=== PATIENT | female | born 1930 | race Caucasian/White ===

== ENCOUNTER 2016-11-29 00:21 | Inpatient (IN) | payer MEDICARE, BC ==
[2016-11-29] MEDS ORDERED: Ondansetron INJ* 2 MG/ML VIAL IV ONE (00:36)
[2016-11-29] MEDS ORDERED: Morphine INJ* 4 MG/ML 1 ML CARPUJECT IV ONE (00:36)
[2016-11-29 01:11] LABS: Hematocrit 36 % (35-47); Hemoglobin 11.6 g/dl (12.0-16.0); Mean Corpuscular HGB Conc 32 g/dl (31-36); Mean Corpuscular Hemoglobin 29 pg (27-31); Mean Corpuscular Volume 89 fL (80-97); Mean Platelet Volume 9 um3 (7.4-10.4); Red Blood Count 4.06 10^6/ul (4.0-5.4); Red Cell Distribution Width 16 % (10.5-15); White Blood Count 17.8 10^3/ul (3.5-10.8)
[2016-11-29 01:24] LABS: ALT 16 U/L (7-52); Albumin 3.8 g/dL (3.2-5.2); Alkaline Phosphatase 48 U/L (34-104); BUN/Creatinine Ratio 24.1 (8-20); Blood Urea Nitrogen 32 mg/dL (6-24); C Reactive Protein < 1.00 mg/L (< 5.00); CO2 Carbon Dioxide 25 mmol/L (22-32); Calcium 9.1 mg/dL (8.6-10.3); Chloride 99 mmol/L (101-111); Creatine Kinase 354 U/L (10-223); EGFR African American 48.6 (>60); EGFR Non-African American 37.8 (>60); Globulin 3.1 g/dL (2-4); Glucose 138 mg/dL (70-100); Lipase 28 U/L (11.0-82.0); Magnesium 1.9 mg/dL (1.9-2.7); Sodium 133 mmol/L (133-145); Total Protein 6.9 g/dL (6.4-8.9)
[2016-11-29 01:26] LABS: AST 24 U/L (13-39); Anion Gap 9 mmol/L (2-11); Potassium 4.8 mmol/L (3.5-5.0)
[2016-11-29 01:27] LABS: Troponin I 0.04 ng/mL (<0.04)
[2016-11-29 01:45] LABS: TSH (Thyroid Stimulating Horm) 0.22 mcIU/mL (0.34-5.60)
[2016-11-29] MEDS: NS 0.9% 1000 ML* 1,000 ML IV SCH ×3 (02:15→17:22)
--- NOTE | 2016-11-29 03:17 | ED ---
Dmitriy Hernandez Rebecca, scribed for Archie Bill MD on 11/29/16 at 0036 . Lower Extremity - HPI Summary HPI Summary: Pt is an 86 y/o F BIBA who presents to ED c/o R hip pain s/p fall. Pt was outside and slipped on ice, causing a mechanical fall at 1900, causing her to be outside from 1900 to 2300, until EMS arrived. Pt c/o R hip pain that began immediately after the fall and has been constant since onset. Pain is currently moderate and is discrete to the R hip. Sx aggravated and alleviated by nothing. Denies any other pain, including abd pain. Unsure of her reaction to codeine due to how long ago the reaction was. Is on Coumadin. - History of Current Complaint Stated Complaint: FALL, OUTSIDE 5 HOURS LEG PAIN Time Seen by Provider: 11/29/16 00:27 Hx Obtained From: Patient Mechanism Of Injury: Fall From A Standing Position Onset of Pain: Immediate Onset/Duration: Hours Severity Initially: Moderate Severity Currently: Moderate Timing: Constant Location: Is Discrete @ - R hip Character Of Pain: Sharp Associated Signs And Symptoms: Positive: Negative Aggravating Factor(s): Nothing Alleviating Factor(s): Nothing - Allergies/Home Medications Allergies/Adverse Reactions: Allergies Allergy/AdvReac Type Severity Reaction Status Date / Time Adhesive Tape [Paper Tape] Allergy Blisters Verified 11/29/16 02:37 Amiodarone Allergy Unknown Verified 11/29/16 02:37 Reaction Details Codeine Allergy Unknown Verified 11/29/16 02:37 Reaction Details PMH/Surg Hx/FS Hx/Imm Hx Endocrine/Hematology History: Reports: Hx Thyroid Disease Denies: Hx Diabetes Cardiovascular History: Reports: Hx Congestive Heart Failure, Hx Hypercholesterolemia, Hx Hypertension - TREATED, Hx Pacemaker/ICD - 2004, Other Cardiovascular Problems/Disorders - Bradycardia Respiratory History: Reports: Hx Asthma - NEW ONSET VERY SOB WORSENING 12/2014 Denies: Hx Chronic Obstructive Pulmonary Disease (COPD) GI History: Denies: Hx Gastroesophageal Reflux Disease, Hx Ulcer Musculoskeletal History: Reports: Hx Arthritis Sensory History: Reports: Hx Cataracts, Hx Contacts or Glasses, Hx Hearing Problem Opthamlomology History: Reports: Hx Cataracts, Hx Contacts or Glasses - Cancer History Cancer Type, Location and Year: colon ca 2010 - Surgical History Surgery Procedure, Year, and Place: Bilateral total shoulder replacements, Colon Resection 2009, pacer/ICD - Immunization History Date of Tetanus Vaccine: pt states she doesnt know Date of Influenza Vaccine: jul 2012 Infectious Disease History: Denies: Hx Clostridium Difficile, Hx Hepatitis, Hx Human Immunodeficiency Virus (HIV), Hx of Known/Suspected MRSA, Hx Shingles, Hx Tuberculosis, Traveled Outside the [place] in Last 30 Days - Family History Known Family History: Positive: Other - Stomach CA - Social History Alcohol Use: Rare Substance Use Type: Reports: None Smoking Status (MU): Never Smoked Tobacco Review of Systems Negative: Abdominal Pain Positive: Arthralgia - R hip pain All Other Systems Reviewed And Are Negative: Yes Physical Exam Triage Information Reviewed: Yes Vital Signs On Initial Exam: Initial Vitals Temp Pulse Resp BP Pulse Ox 97.7 F 70 20 134/64 100 11/29/16 00:25 11/29/16 00:25 11/29/16 00:25 11/29/16 00:25 11/29/16 00:25 Vital Signs Reviewed: Yes Appearance: Positive: Well-Appearing, No Pain Distress Skin: Positive: Skin Color Reflects Adequate Perfusion, Dry, Cold - Both feet are cool to the touch, Other - Shivering; normal capillary refill Eyes: Positive: EOMI, ANTONINO Neck: Positive: Supple, Nontender Respiratory/Lung Sounds: Positive: Clear to Auscultation, Breath Sounds Present Cardiovascular: Positive: RRR Abdomen Description: Positive: Nontender, Soft Bowel Sounds: Positive: Present Musculoskeletal: Positive: Pain @ - Tenderness to the R hip; RLE is shortened and externally rotated, Other - Good pedal pulses Neurological: Positive: Normal, Sensory/Motor Intact, Alert, Oriented to Person Place, Time Psychiatric: Positive: Affect/Mood Appropriate Diagnostics - Vital Signs Vital Signs Temp Pulse Resp BP Pulse Ox 11/29/16 03:00 80 24 141/56 97 11/29/16 02:30 80 19 155/81 96 11/29/16 02:16 80 20 140/63 98 11/29/16 02:10 80 18 98 11/29/16 01:13 16 11/29/16 01:00 80 26 98 11/29/16 00:53 83 24 97 11/29/16 00:25 97.7 F 70 20 134/64 100 - Laboratory Lab Results: Lab Results 01/01/1411/29/16 11/29/16 Range/Units 00:50 00:50 00:50 WBC 17.8 H (3.5-10.8) 10^3/ul RBC 4.06 (4.0-5.4) 10^6/ul Hgb 11.6 L (12.0-16.0) g/dl Hct 36 (35-47) % MCV 89 (80-97) fL MCH 29 (27-31) pg MCHC 32 (31-36) g/dl RDW 16 H (10.5-15) % Plt Count 218 (150-450) 10^3/ul MPV 9 (7.4-10.4) um3 Neut % (Auto) 80.0 (38-83) % Lymph % (Auto) 12.1 L (25-47) % Sterling % (Auto) 7.4 (1-9) % Eos % (Auto) 0.1 (0-6) % Baso % (Auto) 0.4 (0-2) % Absolute Neuts (auto) 14.2 H (1.5-7.7) 10^3/ul Absolute Lymphs (auto) 2.2 (1.0-4.8) 10^3/ul Absolute Monos (auto) 1.3 H (0-0.8) 10^3/ul Absolute Eos (auto) 0 (0-0.6) 10^3/ul Absolute Basos (auto) 0.1 (0-0.2) 10^3/ul Absolute Nucleated RBC 0 10^3/ul Nucleated RBC % 0 INR (Anticoag Therapy) 2.65 H (0.89-1.11) APTT 30.3 (26.0-36.3) seconds Sodium 133 (133-145) mmol/L Potassium 4.8 (3.5-5.0) mmol/L Chloride 99 L (101-111) mmol/L Carbon Dioxide 25 (22-32) mmol/L Anion Gap 9 (2-11) mmol/L BUN 32 H (6-24) mg/dL Creatinine 1.33 H (0.51-0.95) mg/dL Est GFR ( Amer) 48.6 (>60) Est GFR (Non-Af Amer) 37.8 (>60) BUN/Creatinine Ratio 24.1 H (8-20) Glucose 138 H (70-100) mg/dL Lactic Acid (0.5-2.0) mmol/L Calcium 9.1 (8.6-10.3) mg/dL Magnesium 1.9 (1.9-2.7) mg/dL Total Bilirubin 0.60 (0.2-1.0) mg/dL AST 24 (13-39) U/L ALT 16 (7-52) U/L Alkaline Phosphatase 48 (34-104) U/L Total Creatine Kinase 354 H (10-223) U/L CK-MB (CK-2) 13.5 H (0.6-6.3) ng/mL Troponin I 0.04 H* (<0.04) ng/mL C-Reactive Protein < 1.00 (< 5.00) mg/L Total Protein 6.9 (6.4-8.9) g/dL Albumin 3.8 (3.2-5.2) g/dL Globulin 3.1 (2-4) g/dL Albumin/Globulin Ratio 1.2 (1-3) Lipase 28 (11.0-82.0) U/L TSH 0.22 L (0.34-5.60) mcIU/mL 11/29/16 Range/Units 00:50 WBC (3.5-10.8) 10^3/ul RBC (4.0-5.4) 10^6/ul Hgb (12.0-16.0) g/dl Hct (35-47) % MCV (80-97) fL MCH (27-31) pg MCHC (31-36) g/dl RDW (10.5-15) % Plt Count (150-450) 10^3/ul MPV (7.4-10.4) um3 Neut % (Auto) (38-83) % Lymph % (Auto) (25-47) % Sterling % (Auto) (1-9) % Eos % (Auto) (0-6) % Baso % (Auto) (0-2) % Absolute Neuts (auto) (1.5-7.7) 10^3/ul Absolute Lymphs (auto) (1.0-4.8) 10^3/ul Absolute Monos (auto) (0-0.8) 10^3/ul Absolute Eos (auto) (0-0.6) 10^3/ul Absolute Basos (auto) (0-0.2) 10^3/ul Absolute Nucleated RBC 10^3/ul Nucleated RBC % INR (Anticoag Therapy) (0.89-1.11) APTT (26.0-36.3) seconds Sodium (133-145) mmol/L Potassium (3.5-5.0) mmol/L Chloride (101-111) mmol/L Carbon Dioxide (22-32) mmol/L Anion Gap (2-11) mmol/L BUN (6-24) mg/dL Creatinine (0.51-0.95) mg/dL Est GFR ( Amer) (>60) Est GFR (Non-Af Amer) (>60) BUN/Creatinine Ratio (8-20) Glucose (70-100) mg/dL Lactic Acid 2.7 H* (0.5-2.0) mmol/L Calcium (8.6-10.3) mg/dL Magnesium (1.9-2.7) mg/dL Total Bilirubin (0.2-1.0) mg/dL AST (13-39) U/L ALT (7-52) U/L Alkaline Phosphatase (34-104) U/L Total Creatine Kinase (10-223) U/L CK-MB (CK-2) (0.6-6.3) ng/mL Troponin I (<0.04) ng/mL C-Reactive Protein (< 5.00) mg/L Total Protein (6.4-8.9) g/dL Albumin (3.2-5.2) g/dL Globulin (2-4) g/dL Albumin/Globulin Ratio (1-3) Lipase (11.0-82.0) U/L TSH (0.34-5.60) mcIU/mL Result Diagrams: 11/29/16 00:50 11/29/16 00:50 Lab Statement: Any lab studies that have been ordered have been reviewed, and results considered in the medical decision making process. - Radiology Hip/Pelvis XR Xray Interpretation: Positive (See Comments) - R hip fx Radiology Interpretation Completed By: ED Physician - EKG 0043 Cardiac Rate: NL - 80 bpm EKG Rhythm: Sinus Rhythm - Normal sinus rhythm with intermittently atrial paced rhythm of [address] Segment: Normal - No ST changes Re-Evaluation - Re-Evaluation First Eval Re-Evaluation Time: 02:42 Change: Unchanged Comment: Discussed XR results and admission plan. Pt and family understand and agree. Lower Extremity Course/Dx - Course Assessment/Plan: WELL IN ED. DISCUSSED REULTS WITH PATIENT, ORTHOPEDIST AND HOSPITALIST. ADMIT HOSPITALIST STABLE. - Diagnoses Provider Diagnoses: Hip fracture - Physician Notifications Discussed Care of Patient With: Dr. Mcneal, hospitalist, who agrees to admit pt if orthopedics declares that she needs admission. Dr. Patton, orthopedist, at 0222, to notify her of the hip fx who advises that pt be admitted. Dr. Mcneal, hospitalist, Time Discussed With Above Provider: 01:34 Discharge - Discharge Plan Condition: Stable Disposition: ADMITTED TO [facility] Referrals: Mariano Guy MD [Primary Care Provider] - The documentation as recorded by the Dmitriy villagran Rebecca accurately reflects the service I personally performed and the decisions made by me, Archie Bill MD.
[2016-11-29 04:40] LABS: Urine Bacteria Absent (Absent); Urine Bilirubin Negative (Negative); Urine Glucose Negative (Negative); Urine Nitrite Negative (Negative)
[2016-11-29] MEDS ORDERED: Morphine INJ* 2 MG/ML 1 ML CARPUJECT ONE (04:40)
[2016-11-29] MEDS: Morphine INJ* 2 MG/ML 1 ML CARPUJECT IV PRN ×4 (04:42→19:25)
[2016-11-29] MEDS ORDERED: NS 0.9% 1000 ML* 1,000 ML IV SCH (05:15)
[2016-11-29] MEDS: Dofetilide CAP* 250 MCG PO SCH ×3 (06:17→19:27)
[2016-11-29] MEDS: Levothyroxine TAB* 125 MCG TAB PO SCH (07:07)
--- NOTE | 2016-11-29 07:51 | RAD ---
HISTORY: Fall, right hip pain COMPARISONS: 02/10/2006 VIEWS: 4, Frontal view of the pelvis with frontal and crosstable lateral views of the right hip FINDINGS: BONE DENSITY: There is diffuse osteopenia. BONES: There is angulated fracture of the intertrochanteric and subtrochanteric proximal right femur. 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 ALIGNMENT: As noted above, there is varus angulation of the proximal femoral fracture. There is no dislocation. SOFT TISSUES: Unremarkable. OTHER FINDINGS: None. IMPRESSION: ANGULATED FRACTURE OF THE PROXIMAL RIGHT FEMUR
--- NOTE | 2016-11-29 07:55 | RAD ---
INDICATION: Shortness of breath COMPARISON: Chest x-ray dated September 23, 2016 TECHNIQUE: Single AP view of the chest was obtained. FINDINGS: Postoperative findings include bilateral shoulder prostheses and a left upper chest cardiac pacemaker with 4 leads overlying the heart. The heart and mediastinum exhibit normal size and contour. There is patchy density overlying the right hilum at the medial aspect of the right lung base is not densely seen in the previous chest x-ray. Elsewhere the lungs are clear. There is no evidence of a large pleural effusion. Visualized bones are normal for the patient's age. IMPRESSION: POSSIBLE INFILTRATE AT THE MEDIAL ASPECT OF THE RIGHT LOWER LUNG. THIS COULD REPRESENT PNEUMONIA IN THE CORRECT CLINICAL SETTING.
[2016-11-29] MEDS: Atorvastatin* 20 MG TAB PO SCH (08:35)
[2016-11-29] MEDS: Spironolactone TAB* 25 MG PO SCH (08:35)
[2016-11-29] MEDS ORDERED: COMBIGAN LEFT EYE SCH (09:00)
[2016-11-29] MEDS ORDERED: Dorzolamide 2% OPTH (NF) 10 ML BTL LEFT EYE SCH (09:00)
[2016-11-29] MEDS: Torsemide TAB* 20 MG PO SCH (09:31)
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
--- NOTE | 2016-11-29 15:19 | PN ---
Subjective Date of Service: 11/29/16 Interval History: Patient seen and examined at bedside. She states that she lives at home with her in [place] in a farmhouse. They live solely on the bottom floor of their home and do not have to climb stairs. There are 4 rooms on the bottom floor. She sustained a mechanical fall on ice last evening as she was attempting to go out to the garage. She denies CP, SOB, abd pain, n/v, dysuria. She reports adequate pain control with morphine. Family History: Unchanged from Admission Social History: Unchanged from Admission Past Medical History: Unchanged from Admission Objective Active Medications: Atorvastatin Calcium (Lipitor*) 20 mg PO DAILY CARLOS PRN Reason: Protocol Last Admin: 11/29/16 08:35 Dose: 20 mg Bimatoprost (Lumigan 0.01% Ophth (Nf)) 1 drop LEFT EYE BEDTIME [facility] Dofetilide (Tikosyn Cap*) 250 mcg PO BID [facility] Last Admin: 11/29/16 06:19 Dose: 250 mcg Dorzolamide HCl (Trusopt 2% Opth (Nf)) 1 drop LEFT EYE BID [facility] PRN Reason: Protocol Sodium Chloride (Ns 0.9% 1000 Ml*) 1,000 mls @ 150 mls/hr IV PER RATE [facility] Last Admin: 11/29/16 06:19 Dose: 150 mls/hr Sodium Chloride (Ns 0.9% 1000 Ml*) 1,000 mls @ 100 mls/hr IV PER RATE [facility] Last Admin: 11/29/16 07:15 Dose: 100 mls/hr Levothyroxine Sodium (Synthroid Tab*) 125 mcg PO 0600 CARLOS Last Admin: 11/29/16 07:07 Dose: 125 mcg Morphine Sulfate (Morphine Inj (Syringe)*) 2 mg IV Q2H PRN PRN Reason: PAIN Last Admin: 11/29/16 12:52 Dose: 2 mg Pt Own Nf Med* ( Combigan 0.2/0.5% ( Nf) 1 Drop) 1 drop LEFT EYE BID [facility] Ondansetron HCl (Zofran Inj*) 4 mg IV Q4H PRN PRN Reason: NAUSEA Spironolactone (Aldactone Tab*) 25 mg PO DAILY [facility] Last Admin: 11/29/16 08:35 Dose: 25 mg Torsemide (Demadex*) 20 mg PO MoWeFr@0900 [facility] Last Admin: 11/29/16 09:31 Dose: 20 mg Vital Signs 11/29/16 11/29/16 11/29/16 04:42 05:00 05:30 Temperature 97.3 F Pulse Rate 80 80 Respiratory 16 20 18 Rate Blood Pressure 135/61 145/77 (mmHg) O2 Sat by Pulse 95 98 Oximetry 11/29/16 11/29/16 11/29/16 05:49 06:33 07:09 Temperature 97.3 F Pulse Rate 80 Respiratory 18 18 18 Rate Blood Pressure 145/77 (mmHg) O2 Sat by Pulse 98 Oximetry 11/29/16 11/29/16 11/29/16 07:40 10:16 11:16 Temperature 97.9 F Pulse Rate 80 Respiratory 14 16 16 Rate Blood Pressure 128/65 (mmHg) O2 Sat by Pulse 97 Oximetry 11/29/16 11/29/16 11/29/16 12:08 12:52 13:52 Temperature 97.9 F Pulse Rate 80 Respiratory 16 16 16 Rate Blood Pressure 122/58 (mmHg) O2 Sat by Pulse 96 Oximetry Oxygen Devices in Use Now: None Appearance: Older female, lying in bed, in NAD Eyes: PERRLA Ears/Nose/Mouth/Throat: Mucous Membranes Moist Neck: NL Appearance and Movements; NL JVP Respiratory: Symmetrical Chest Expansion and Respiratory Effort, Clear to Auscultation Cardiovascular: NL Sounds; No Murmurs; No JVD, RRR Abdominal: NL Sounds; No Tenderness; No Distention Extremities: No Edema Skin: No Rash or Ulcers Neurological: Alert and Oriented x 3 Lines/Tubes/Other Access: Clean, Dry and Intact Lara, Clean, Dry and Intact Peripheral IV Nutrition: Taking PO's Result Diagrams: 11/29/16 00:50 11/29/16 00:50 Additional Lab and Data: Lab Results 11/29/16 11/29/16 11/29/16 Range/Units 00:50 00:50 00:50 WBC 17.8 H (3.5-10.8) 10^3/ul RBC 4.06 (4.0-5.4) 10^6/ul Hgb 11.6 L (12.0-16.0) g/dl Hct 36 (35-47) % MCV 89 (80-97) fL MCH 29 (27-31) pg MCHC 32 (31-36) g/dl RDW 16 H (10.5-15) % Plt Count 218 (150-450) 10^3/ul MPV 9 (7.4-10.4) um3 Neut % (Auto) 80.0 (38-83) % Lymph % (Auto) 12.1 L (25-47) % Clinton % (Auto) 7.4 (1-9) % Eos % (Auto) 0.1 (0-6) % Baso % (Auto) 0.4 (0-2) % Absolute Neuts (auto) 14.2 H (1.5-7.7) 10^3/ul Absolute Lymphs (auto) 2.2 (1.0-4.8) 10^3/ul Absolute Monos (auto) 1.3 H (0-0.8) 10^3/ul Absolute Eos (auto) 0 (0-0.6) 10^3/ul Absolute Basos (auto) 0.1 (0-0.2) 10^3/ul Absolute Nucleated RBC 0 10^3/ul Nucleated RBC % 0 INR (Anticoag Therapy) 2.65 H (0.89-1.11) APTT 30.3 (26.0-36.3) seconds Sodium 133 (133-145) mmol/L Potassium 4.8 (3.5-5.0) mmol/L Chloride 99 L (101-111) mmol/L Carbon Dioxide 25 (22-32) mmol/L Anion Gap 9 (2-11) mmol/L BUN 32 H (6-24) mg/dL Creatinine 1.33 H (0.51-0.95) mg/dL Est GFR ( Amer) 48.6 (>60) Est GFR (Non-Af Amer) 37.8 (>60) BUN/Creatinine Ratio 24.1 H (8-20) Glucose 138 H (70-100) mg/dL Lactic Acid (0.5-2.0) mmol/L Calcium 9.1 (8.6-10.3) mg/dL Magnesium 1.9 (1.9-2.7) mg/dL Total Bilirubin 0.60 (0.2-1.0) mg/dL AST 24 (13-39) U/L ALT 16 (7-52) U/L Alkaline Phosphatase 48 (34-104) U/L Total Creatine Kinase 354 H (10-223) U/L CK-MB (CK-2) 13.5 H (0.6-6.3) ng/mL Troponin I 0.04 H* (<0.04) ng/mL C-Reactive Protein < 1.00 (< 5.00) mg/L Total Protein 6.9 (6.4-8.9) g/dL Albumin 3.8 (3.2-5.2) g/dL Globulin 3.1 (2-4) g/dL Albumin/Globulin Ratio 1.2 (1-3) Lipase 28 (11.0-82.0) U/L TSH 0.22 L (0.34-5.60) mcIU/mL 11/29/16 Range/Units 00:50 WBC (3.5-10.8) 10^3/ul RBC (4.0-5.4) 10^6/ul Hgb (12.0-16.0) g/dl Hct (35-47) % MCV (80-97) fL MCH (27-31) pg MCHC (31-36) g/dl RDW (10.5-15) % Plt Count (150-450) 10^3/ul MPV (7.4-10.4) um3 Neut % (Auto) (38-83) % Lymph % (Auto) (25-47) % Clinton % (Auto) (1-9) % Eos % (Auto) (0-6) % Baso % (Auto) (0-2) % Absolute Neuts (auto) (1.5-7.7) 10^3/ul Absolute Lymphs (auto) (1.0-4.8) 10^3/ul Absolute Monos (auto) (0-0.8) 10^3/ul Absolute Eos (auto) (0-0.6) 10^3/ul Absolute Basos (auto) (0-0.2) 10^3/ul Absolute Nucleated RBC 10^3/ul Nucleated RBC % INR (Anticoag Therapy) (0.89-1.11) APTT (26.0-36.3) seconds Sodium (133-145) mmol/L Potassium (3.5-5.0) mmol/L Chloride (101-111) mmol/L Carbon Dioxide (22-32) mmol/L Anion Gap (2-11) mmol/L BUN (6-24) mg/dL Creatinine (0.51-0.95) mg/dL Est GFR ( Amer) (>60) Est GFR (Non-Af Amer) (>60) BUN/Creatinine Ratio (8-20) Glucose (70-100) mg/dL Lactic Acid 2.7 H* (0.5-2.0) mmol/L Calcium (8.6-10.3) mg/dL Magnesium (1.9-2.7) mg/dL Total Bilirubin (0.2-1.0) mg/dL AST (13-39) U/L ALT (7-52) U/L Alkaline Phosphatase (34-104) U/L Total Creatine Kinase (10-223) U/L CK-MB (CK-2) (0.6-6.3) ng/mL Troponin I (<0.04) ng/mL C-Reactive Protein (< 5.00) mg/L Total Protein (6.4-8.9) g/dL Albumin (3.2-5.2) g/dL Globulin (2-4) g/dL Albumin/Globulin Ratio (1-3) Lipase (11.0-82.0) U/L TSH (0.34-5.60) mcIU/mL Assess/Plan/Problems-Billing Assessment: Ms. Pompa is an 86 yo female with a PMH of paroxysmal afib, dual chamber pacemaker placement, cardiomyopathy EF 45%, systolic and diastolic heart failure , BALJIT, hypothyroidism, HTN, HLD, bullous pemphigoid, and colon cancer who was admitted 11/29/16 for right hip fracture sustained during mechanical fall. - Patient Problems (1) Closed right hip fracture Code(s): S72.001A - FRACTURE OF UNSP PART OF NECK OF RIGHT FEMUR, INIT Comment : Management per ortho, plan for surgery Tuesday, once INR decreases Lara catheter for comfort and hemodynamic monitoring Pain management Cardiology consult desired due to multiple cardiovascular risk factors. The patient has an RCRI score of 1, which places the patient at a 0.9% risk of a major cardiac event. Her functional capacity is approximately 3-4 mets at best ; the patient does ambulate in her home and is able to drive. She does do some grocery shopping. She does not cook her own food and has someone clean her house. She and her eat out for breakfast and dinner. (2) Paroxysmal atrial fibrillation Code(s): I48.0 - PAROXYSMAL ATRIAL FIBRILLATION Comment: Stable, not currently in a fib. Continue Tikosyn Hold warfarin in the preoperative period; may resume per ortho (3) Cardiomyopathy Code(s): I42.9 - CARDIOMYOPATHY, UNSPECIFIED Comment: Most recently documented EF is 45% (4) Systolic and diastolic CHF, chronic Code(s): I50.42 - CHRONIC COMBINED SYSTOLIC AND DIASTOLIC HRT FAIL Comment: Chronic intermittent, does not appear to be in acute exacerbation Continue torsemide, spironolactone (5) BALJIT (obstructive sleep apnea) Code(s): G47.33 - OBSTRUCTIVE SLEEP APNEA (ADULT) (PEDIATRIC) Comment: Does not tolerate CPAP (6) Hypothyroidism Code(s): E03.9 - HYPOTHYROIDISM, UNSPECIFIED Comment: Continue levothyroxine (7) HTN (hypertension) Code(s): I10 - ESSENTIAL (PRIMARY) HYPERTENSION Comment: Controlled. Continue home medications. (8) Dyslipidemia Code(s): E78.5 - HYPERLIPIDEMIA, UNSPECIFIED Comment: Continue statin. (9) DVT prophylaxis Comment: INR is supratherapeutic. Hold warfarin. Status and Disposition: Inpatient admission. Anticipate LOS >2 days.
--- NOTE | 2016-11-29 16:13 | PN ---
Progress Note - Progress Note Note: Pt seen and examined at 9 this AM. Note dictated but has not been transcribed. Plan for TFN on Tuesday.
--- NOTE | 2016-11-29 18:29 | CONS ---
CONSULTATION REPORT: DATE OF CONSULTATION: 11/29/16 ATTENDING PHYSICIAN: Stephanie Patton MD CONSULTING TEAM: Hospitalist. CHIEF COMPLAINT: Right hip pain. HISTORY OF PRESENT ILLNESS: Briefly, Ms. Martha Pompa is an 86-year-old independent female who was walking briskly back to her car as she had forgotten something in the car and then slipped and landed hard on her right side. She was unable weight bear and was transferred to the ED late yesterday evening. She is in her usual state of health. She has a complicated past medical history with pacemaker status post AV ligia ablation, paroxysmal atrial fibrillation. She is on Coumadin. She was diagnosed with subtrochanteric right hip fracture and admitted for medical optimization. Her INR was 2.5. She denies any numbness or tingling. She denies any loss of consciousness. Otherwise, she is alert and oriented. PAST MEDICAL HISTORY: Significant for paroxysmal atrial fibrillation, symptomatic bradycardia, tachybrady syndrome, cardiomyopathy with ejection fraction of 45%, chronic intermittent congestive heart failure, BALJIT, morbid obesity, hypothyroid disease, hypertension, dyslipidemia, past history of bullous pemphigoid that is resolved, history of colon cancer that is in remission. PAST SURGICAL HISTORY: Significant for pacemaker in 2000, colon cancer status post colectomy on 05/25/11, AV node ablation in 2009. MEDICATIONS: Include: 1. Coumadin. 2. Torsemide. 3. Spironolactone. 4. Synthroid. 5. Combigan ophthalmic drops. 6. Bimatoprost ophthalmic drops. 7. Lipitor. ALLERGIES: Include CODEINE, TAPE, AMIODARONE, and IODINATED CONTRAST AGENTS. FAMILY HISTORY: Her father at 73 with stomach cancer. Her mother at 90 with congenital heart disease. SOCIAL HISTORY: She lives with her . 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 She never smoked. She drinks alcohol rarely. She is independent ambulator. Does not use any assistive devices. REVIEW OF SYSTEMS: A 14-point review of systems is significant for the above complaint as well as extensive cardiac history. PHYSICAL EXAM: Vital Signs: Temp is 97.9, heart rate of 80, respiratory rate of 14, O2 rate of 97% on room air, blood pressure is 128/65. She is alert and oriented x3. She is no acute distress. EOMI. Chest is clear to auscultation. CV regular rate. Abdomen soft, nontender. Examination of the left leg demonstrates the skin is intact. She has bruising over the right lateral knee. She is nontender about the knee. She is able to dorsiflex, plantar flex her ankle. She is sensate to light touch about the first dorsal webspace, medial, lateral, dorsal and plantar foot. She has 2+ dorsalis pedis pulse. She is able to flex and extend her toes. Her calf is soft and nontender. DIAGNOSTIC STUDIES/LAB DATA: Labs include white count of 17.8, hematocrit of 36 , platelet count of 218. INR is 2.65. Sodium is 133, potassium 4.8, chloride 99, carbon dioxide 25, BUN is 32, creatinine is 1.33. Lactic acid was 2.7 and then rechecked several hours later and it is 1.4. Calcium is 9.1. Total creatine kinase is 354, CK-MB is 13.5. Troponin x2 is 0.04 and 0.07. TSH is 0.22. Lipase 28. X-rays reviewed that are AP, pelvis, and views of the right hip demonstrated a subtrochanteric femur fracture. Does have a significant amount of displacement ; however, it shortened. ASSESSMENT AND PLAN: She has subtrochanteric right hip fracture. This needs surgical treatment. Treatment would be right hip intramedullary nail. We discussed the risks and benefits of surgery. We discussed that this is difficult fracture due to its location and that we can often require an open reduction. We did discuss the risks including but not limited to bleeding, infection, damage to nerve vessel, surrounding structures, wound nonhealing, persistent pain, scarring, need for further surgery, mobility issues, mortality , risks of DVT, and risks of anesthesia. She will undergo medical optimization and we will lower her INR to the normal range. This may take a day or 2. She will require cardiac risk assessment as well and we will plan for surgery likely on Tuesday if she is stable on Tuesday. I will ask one of my partners can take care of her on Tuesday. Otherwise, we will plan for Tuesday afternoon. CC: PCP, Mariano Guy MD* [id number]/[facility] #: [id number] DAYA
[2016-11-29] MEDS: DORZOLAMIDE 2% LEFT EYE SCH (19:28)
[2016-11-29] MEDS: OPTH LEFT EYE SCH (19:28)
[2016-11-29] MEDS: COMBIGAN LEFT EYE SCH (19:29)
[2016-11-29] MEDS: BIMATOPROST 0.01% LEFT EYE SCH (19:30)
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
[2016-11-30] MEDS: Levothyroxine TAB* 125 MCG TAB PO SCH (05:38)
[2016-11-30] MEDS: Morphine INJ* 2 MG/ML 1 ML CARPUJECT IV PRN ×4 (05:46→16:51)
[2016-11-30] MEDS: Ondansetron INJ* 2 MG/ML VIAL IV PRN ×2 (05:46→13:36)
[2016-11-30 06:08] LABS: Hematocrit 29 % (35-47); Hemoglobin 9.4 g/dl (12.0-16.0); Mean Corpuscular HGB Conc 32 g/dl (31-36); Mean Corpuscular Hemoglobin 29 pg (27-31); Mean Corpuscular Volume 88 fL (80-97); Mean Platelet Volume 9 um3 (7.4-10.4); Red Cell Distribution Width 16 % (10.5-15); White Blood Count 10.5 10^3/ul (3.5-10.8)
[2016-11-30 06:36] LABS: BUN/Creatinine Ratio 27.8 (8-20); Calcium 8.1 mg/dL (8.6-10.3); EGFR African American 76.3 (>60); EGFR Non-African American 59.4 (>60)
[2016-11-30 06:54] LABS: Add Diff/Slide Review? Slide Review Added; Comments Flag Yes
--- NOTE | 2016-11-30 07:12 | HP ---
DICTATION STARTS ABRUPTLY - NO DATE OF , NO NAME DICTATED HISTORY AND PHYSICAL: ADDENDUM: 1. I request direction from Dr. Corley, and the patient may benefit from Cardiology consult depending on the findings of these. 2. Hypertension. Blood pressure adequately controlled. Continue current regimen. 3. Atrial fibrillation. Heart rate appears adequately controlled. Again, we are letting the INR trend downwards. Will need prophylaxis with heparin once the patient's INR normalizes. 4. Hypothyroidism. Stable. Continue Synthroid. 5. FEN. Regular diet until the patient going for surgery. 6. DVT prophylaxis. Again, the patient is on Coumadin and will need heparin once her INR normalizes. 7. The patient is a full code. TIME SPENT: Over 75 minutes were spent on this H and P, more than 40 minutes of which were spent in direct [id number] contact with the patient in evaluation, physical exam, counseling and coordination of care. [id number]/[facility] #: [id number] MTDD
[2016-11-30] MEDS: NS 0.9% 1000 ML* 1,000 ML IV SCH ×2 (07:26→21:15)
[2016-11-30] MEDS: Atorvastatin* 20 MG TAB PO SCH (07:32)
[2016-11-30] MEDS: Dofetilide CAP* 250 MCG PO SCH ×2 (07:43→21:06)
[2016-11-30] MEDS: COMBIGAN LEFT EYE SCH ×2 (07:44→21:03)
[2016-11-30] MEDS: DORZOLAMIDE 2% LEFT EYE SCH ×2 (07:45→21:01)
[2016-11-30] MEDS: OPTH LEFT EYE SCH ×2 (07:45→21:01)
[2016-11-30] MEDS: Spironolactone TAB* 25 MG PO SCH (08:35)
--- NOTE | 2016-11-30 08:44 | PN ---
Progress Note - Progress Note SOAP: Subjective: pt resting comfortably with minimal pain Objective: Vital Signs Temp Pulse Resp BP Pulse Ox 98.6 F 80 16 120/54 96 11/30/16 07:28 11/30/16 07:28 11/30/16 07:28 11/30/16 07:28 11/30/16 07:28 Laboratory Last Values WBC 10.5 10^3/ul (3.5-10.8) 11/30/16 05:35 RBC 3.30 10^6/ul (4.0-5.4) L 11/30/16 05:35 Hgb 9.4 g/dl (12.0-16.0) L 11/30/16 05:35 Hct 29 % (35-47) L 11/30/16 05:35 MCV 88 fL (80-97) 11/30/16 05:35 MCH 29 pg (27-31) 11/30/16 05:35 MCHC 32 g/dl (31-36) 11/30/16 05:35 RDW 16 % (10.5-15) H 11/30/16 05:35 Plt Count 146 10^3/ul (150-450) L 11/30/16 05:35 MPV 9 um3 (7.4-10.4) 11/30/16 05:35 Neut % (Auto) 61.7 % (38-83) 11/30/16 05:35 Lymph % (Auto) 21.1 % (25-47) L 11/30/16 05:35 [place] % (Auto) 16.4 % (1-9) H 11/30/16 05:35 Eos % (Auto) 0.5 % (0-6) 11/30/16 05:35 Baso % (Auto) 0.3 % (0-2) 11/30/16 05:35 Absolute Neuts (auto) 6.5 10^3/ul (1.5-7.7) 11/30/16 05:35 Absolute Lymphs (auto) 2.2 10^3/ul (1.0-4.8) 11/30/16 05:35 Absolute Monos (auto) 1.7 10^3/ul (0-0.8) H 11/30/16 05:35 Absolute Eos (auto) 0 10^3/ul (0-0.6) 11/30/16 05:35 Absolute Basos (auto) 0 10^3/ul (0-0.2) 11/30/16 05:35 Absolute Nucleated RBC 0 10^3/ul 11/30/16 05:35 Nucleated RBC % 0 11/30/16 05:35 INR (Anticoag Therapy) 1.90 (0.89-1.11) H 11/30/16 05:35 APTT 30.3 seconds (26.0-36.3) 11/29/16 00:50 Sodium 134 mmol/L (133-145) 11/30/16 05:35 Potassium 4.0 mmol/L (3.5-5.0) 11/30/16 05:35 Chloride 102 mmol/L (101-111) 11/30/16 05:35 Carbon Dioxide 25 mmol/L (22-32) 11/30/16 05:35 Anion Gap 7 mmol/L (2-11) 11/30/16 05:35 BUN 25 mg/dL (6-24) H 11/30/16 05:35 Creatinine 0.90 mg/dL (0.51-0.95) 11/30/16 05:35 Est GFR ( Amer) 76.3 (>60) 11/30/16 05:35 Est GFR (Non-Af Amer) 59.4 (>60) 11/30/16 05:35 BUN/Creatinine Ratio 27.8 (8-20) H 11/30/16 05:35 Glucose 130 mg/dL (70-100) H 11/30/16 05:35 Lactic Acid 1.4 mmol/L (0.5-2.0) 11/29/16 06:09 Calcium 8.1 mg/dL (8.6-10.3) L 11/30/16 05:35 Magnesium 1.9 mg/dL (1.9-2.7) 11/29/16 00:50 Total Bilirubin 0.60 mg/dL (0.2-1.0) 11/29/16 00:50 AST 24 U/L (13-39) 11/29/16 00:50 ALT 16 U/L (7-52) 11/29/16 00:50 Alkaline Phosphatase 48 U/L (34-104) 11/29/16 00:50 Total Creatine Kinase 354 U/L (10-223) H 11/29/16 00:50 CK-MB (CK-2) 13.5 ng/mL (0.6-6.3) H 11/29/16 00:50 Troponin I 0.07 ng/mL (<0.04) H* 11/29/16 21:19 C-Reactive Protein < 1.00 mg/L (< 5.00) 11/29/16 00:50 Total Protein 6.9 g/dL (6.4-8.9) 11/29/16 00:50 Albumin 3.8 g/dL (3.2-5.2) 11/29/16 00:50 Globulin 3.1 g/dL (2-4) 11/29/16 00:50 Albumin/Globulin Ratio 1.2 (1-3) 11/29/16 00:50 Lipase 28 U/L (11.0-82.0) 11/29/16 00:50 TSH 0.22 mcIU/mL (0.34-5.60) L 11/29/16 00:50 Urine Color Yellow 11/29/16 04:23 Urine Appearance Cloudy 11/29/16 04:23 Urine pH 5.0 (5-9) 11/29/16 04:23 Ur Specific [place] 1.021 (1.010-1.030) 11/29/16 04:23 Urine Protein Negative (Negative) 11/29/16 04:23 Urine Ketones Negative (Negative) 11/29/16 04:23 Urine Blood Negative (Negative) 11/29/16 04:23 Urine Nitrate Negative (Negative) 11/29/16 04:23 Urine Bilirubin Negative (Negative) 11/29/16 04:23 Urine Urobilinogen Negative (Negative) 11/29/16 04:23 Ur Leukocyte Esterase Trace (Negative) H 11/29/16 04:23 Urine WBC (Auto) Trace(0-5/hpf) (Absent) 11/29/16 04:23 Urine RBC (Auto) 1+(3-5/hpf) (Absent) H 11/29/16 04:23 Ur Squamous Epith Cells Present (Absent) H 11/29/16 04:23 Urine Bacteria Absent (Absent) 11/29/16 04:23 Hyaline Casts Present (Absent) H 11/29/16 04:23 Urine Glucose Negative (Negative) 11/29/16 04:23 PE: NVI Assessment: s/p right femur fracture Plan: 1) continue current pain regimen 2) NWB RLE 3) NPO after midnight- OR tomorrow
--- NOTE | 2016-11-30 10:08 | PN ---
Subjective Date of Service: 11/30/16 Interval History: Patient seen and examined at bedside. She is resting in bed and denies fever, chest pain, SOB, abd pain, n/v. She states it does hurt when she's repositioned but the morphine is helping. No other concerns at this time. Family History: Unchanged from Admission Social History: Unchanged from Admission Past Medical History: Unchanged from Admission Objective Active Medications: Atorvastatin Calcium (Lipitor*) 20 mg PO DAILY [facility] TO [facility] PRN Reason: Protocol Last Admin: 11/30/16 07:32 Dose: 20 mg Bimatoprost (Lumigan 0.01% Ophth (Nf)) 1 drop LEFT EYE BEDTIME [facility] Last Admin: 11/29/16 19:30 Dose: 1 drop Dofetilide (Tikosyn Cap*) 250 mcg PO BID [facility] Last Admin: 11/30/16 07:43 Dose: 250 mcg Dorzolamide HCl (Trusopt 2% Opth (Nf)) 1 drop LEFT EYE BID [facility] TO [facility] PRN Reason: Protocol Last Admin: 11/30/16 07:45 Dose: 1 drop Sodium Chloride (Ns 0.9% 1000 Ml*) 1,000 mls @ 75 mls/hr IV PER RATE [facility] Last Admin: 11/30/16 07:26 Dose: 75 mls/hr Levothyroxine Sodium (Synthroid Tab*) 125 mcg PO 0600 [facility] Last Admin: 11/30/16 05:38 Dose: 125 mcg Morphine Sulfate (Morphine Inj (Syringe)*) 2 mg IV Q2H PRN PRN Reason: PAIN Last Admin: 11/30/16 07:28 Dose: 2 mg Pt Own Nf Med* ( Combigan 0.2/0.5% ( Nf) 1 Drop) 1 drop LEFT EYE BID [facility] Last Admin: 11/30/16 07:44 Dose: 1 drop Ondansetron HCl (Zofran Inj*) 4 mg IV Q4H PRN PRN Reason: NAUSEA Last Admin: 11/30/16 05:46 Dose: 4 mg Spironolactone (Aldactone Tab*) 25 mg PO DAILY [facility] Last Admin: 11/29/16 08:35 Dose: 25 mg Torsemide (Demadex*) 20 mg PO MoWeFr@0900 [facility] Last Admin: 11/29/16 09:31 Dose: 20 mg Vital Signs 11/29/16 11/29/1611/29/17 10:16 11:16 12:08 Temperature 97.9 F Pulse Rate 80 Respiratory 16 16 16 Rate Blood Pressure 122/58 (mmHg) O2 Sat by Pulse 96 Oximetry 11/29/16 11/29/16 11/29/16 12:52 13:52 15:37 Temperature 98.4 F Pulse Rate 80 Respiratory 16 16 16 Rate Blood Pressure 119/70 (mmHg) O2 Sat by Pulse 97 Oximetry 11/29/16 11/29/16 11/29/16 19:25 19:27 19:30 Temperature 97.4 F Pulse Rate 80 Respiratory 18 20 18 Rate Blood Pressure 135/65 (mmHg) O2 Sat by Pulse 97 Oximetry 11/29/16 11/29/16 11/30/16 20:25 23:33 03:30 Temperature 98.4 F 98.0 F Pulse Rate 80 80 Respiratory 18 16 16 Rate Blood Pressure 106/49 117/65 (mmHg) O2 Sat by Pulse 98 97 Oximetry 11/30/16 11/30/16 11/30/16 05:46 06:33 07:28 Temperature 98.6 F Pulse Rate 80 Respiratory 18 18 16 Rate Blood Pressure 120/54 (mmHg) O2 Sat by Pulse 96 Oximetry Oxygen Devices in Use Now: None Appearance: Older female patient, lying in bed, in NAD Eyes: PERRLA Ears/Nose/Mouth/Throat: Clear Oropharnyx, Mucous Membranes Moist Neck: NL Appearance and Movements; NL JVP Respiratory: Symmetrical Chest Expansion and Respiratory Effort, Clear to Auscultation Cardiovascular: NL Sounds; No Murmurs; No JVD, RRR Abdominal: NL Sounds; No Tenderness; No Distention Extremities: No Edema, - - brisk cap refill to BLE Neurological: Alert and Oriented x 3 Lines/Tubes/Other Access: Clean, Dry and Intact Lara, Clean, Dry and Intact Peripheral IV Result Diagrams: 11/30/16 05:35 11/30/16 05:35 Additional Lab and Data: Lab Results 11/29/16 11/29/16 11/29/16 Range/Units 00:50 00:50 00:50 WBC 17.8 H (3.5-10.8) 10^3/ul RBC 4.06 (4.0-5.4) 10^6/ul Hgb 11.6 L (12.0-16.0) g/dl Hct 36 (35-47) % MCV 89 (80-97) fL MCH 29 (27-31) pg MCHC 32 (31-36) g/dl RDW 16 H (10.5-15) % Plt Count 218 (150-450) 10^3/ul MPV 9 (7.4-10.4) um3 Neut % (Auto) 80.0 (38-83) % Lymph % (Auto) 12.1 L (25-47) % Letcher % (Auto) 7.4 (1-9) % Eos % (Auto) 0.1 (0-6) % Baso % (Auto) 0.4 (0-2) % Absolute Neuts (auto) 14.2 H (1.5-7.7) 10^3/ul Absolute Lymphs (auto) 2.2 (1.0-4.8) 10^3/ul Absolute Monos (auto) 1.3 H (0-0.8) 10^3/ul Absolute Eos (auto) 0 (0-0.6) 10^3/ul Absolute Basos (auto) 0.1 (0-0.2) 10^3/ul Absolute Nucleated RBC 0 10^3/ul Nucleated RBC % 0 INR (Anticoag Therapy) 2.65 H (0.89-1.11) APTT 30.3 (26.0-36.3) seconds Sodium 133 (133-145) mmol/L Potassium 4.8 (3.5-5.0) mmol/L Chloride 99 L (101-111) mmol/L Carbon Dioxide 25 (22-32) mmol/L Anion Gap 9 (2-11) mmol/L BUN 32 H (6-24) mg/dL Creatinine 1.33 H (0.51-0.95) mg/dL Est GFR ( Amer) 48.6 (>60) Est GFR (Non-Af Amer) 37.8 (>60) BUN/Creatinine Ratio 24.1 H (8-20) Glucose 138 H (70-100) mg/dL Lactic Acid (0.5-2.0) mmol/L Calcium 9.1 (8.6-10.3) mg/dL Magnesium 1.9 (1.9-2.7) mg/dL Total Bilirubin 0.60 (0.2-1.0) mg/dL AST 24 (13-39) U/L ALT 16 (7-52) U/L Alkaline Phosphatase 48 (34-104) U/L Total Creatine Kinase 354 H (10-223) U/L CK-MB (CK-2) 13.5 H (0.6-6.3) ng/mL Troponin I 0.04 H* (<0.04) ng/mL C-Reactive Protein < 1.00 (< 5.00) mg/L Total Protein 6.9 (6.4-8.9) g/dL Albumin 3.8 (3.2-5.2) g/dL Globulin 3.1 (2-4) g/dL Albumin/Globulin Ratio 1.2 (1-3) Lipase 28 (11.0-82.0) U/L TSH 0.22 L (0.34-5.60) mcIU/mL 11/29/16 Range/Units 00:50 WBC (3.5-10.8) 10^3/ul RBC (4.0-5.4) 10^6/ul Hgb (12.0-16.0) g/dl Hct (35-47) % MCV (80-97) fL MCH (27-31) pg MCHC (31-36) g/dl RDW (10.5-15) % Plt Count (150-450) 10^3/ul MPV (7.4-10.4) um3 Neut % (Auto) (38-83) % Lymph % (Auto) (25-47) % Letcher % (Auto) (1-9) % Eos % (Auto) (0-6) % Baso % (Auto) (0-2) % Absolute Neuts (auto) (1.5-7.7) 10^3/ul Absolute Lymphs (auto) (1.0-4.8) 10^3/ul Absolute Monos (auto) (0-0.8) 10^3/ul Absolute Eos (auto) (0-0.6) 10^3/ul Absolute Basos (auto) (0-0.2) 10^3/ul Absolute Nucleated RBC 10^3/ul Nucleated RBC % INR (Anticoag Therapy) (0.89-1.11) APTT (26.0-36.3) seconds Sodium (133-145) mmol/L Potassium (3.5-5.0) mmol/L Chloride (101-111) mmol/L Carbon Dioxide (22-32) mmol/L Anion Gap (2-11) mmol/L BUN (6-24) mg/dL Creatinine (0.51-0.95) mg/dL Est GFR ( Amer) (>60) Est GFR (Non-Af Amer) (>60) BUN/Creatinine Ratio (8-20) Glucose (70-100) mg/dL Lactic Acid 2.7 H* (0.5-2.0) mmol/L Calcium (8.6-10.3) mg/dL Magnesium (1.9-2.7) mg/dL Total Bilirubin (0.2-1.0) mg/dL AST (13-39) U/L ALT (7-52) U/L Alkaline Phosphatase (34-104) U/L Total Creatine Kinase (10-223) U/L CK-MB (CK-2) (0.6-6.3) ng/mL Troponin I (<0.04) ng/mL C-Reactive Protein (< 5.00) mg/L Total Protein (6.4-8.9) g/dL Albumin (3.2-5.2) g/dL Globulin (2-4) g/dL Albumin/Globulin Ratio (1-3) Lipase (11.0-82.0) U/L TSH (0.34-5.60) mcIU/mL Assess/Plan/Problems-Billing Assessment: Ms. Pompa is an 86 yo female with a PMH of paroxysmal afib, dual chamber pacemaker placement, cardiomyopathy EF 45%, systolic and diastolic heart failure , BALJIT, hypothyroidism, HTN, HLD, bullous pemphigoid, and colon cancer who was admitted 11/29/16 for right hip fracture sustained during mechanical fall. - Patient Problems (1) Closed right hip fracture Code(s): S72.001A - FRACTURE OF UNSP PART OF NECK OF RIGHT FEMUR, INIT Comment : Management per ortho, plan for surgery Tuesday Give Vitamin K for INR Lara catheter for comfort and hemodynamic monitoring Pain management Appreciate cardiology consult for cardiac clearance The patient has an RCRI score of 1, which places the patient at a 0.9% risk of a major cardiac event. Her functional capacity is approximately 3-4 mets at best ; the patient does ambulate in her home and is able to drive. She does do some grocery shopping. She does not cook her own food and has someone clean her house. She and her eat out for breakfast and dinner. (2) Paroxysmal atrial fibrillation Code(s): I48.0 - PAROXYSMAL ATRIAL FIBRILLATION Comment: Stable, not currently in a fib. Continue Tikosyn Hold warfarin in the preoperative period; may resume per ortho (3) Cardiomyopathy Code(s): I42.9 - CARDIOMYOPATHY, UNSPECIFIED Comment: Most recently documented EF is 45% (4) Systolic and diastolic CHF, chronic Code(s): I50.42 - CHRONIC COMBINED SYSTOLIC AND DIASTOLIC HRT FAIL Comment: Chronic intermittent, does not appear to be in acute exacerbation Continue torsemide, spironolactone (5) BALJIT (obstructive sleep apnea) Code(s): G47.33 - OBSTRUCTIVE SLEEP APNEA (ADULT) (PEDIATRIC) Comment: Does not tolerate CPAP (6) Hypothyroidism Code(s): E03.9 - HYPOTHYROIDISM, UNSPECIFIED Comment: Continue levothyroxine (7) HTN (hypertension) Code(s): I10 - ESSENTIAL (PRIMARY) HYPERTENSION Comment: Controlled. Continue home medications. (8) Dyslipidemia Code(s): E78.5 - HYPERLIPIDEMIA, UNSPECIFIED Comment: Continue statin. (9) DVT prophylaxis Comment: Will hold anticoagulation prior to surgery; will resume when okayed by ortho Status and Disposition: Inpatient admission. Anticipate LOS >2 days.
[2016-11-30] MEDS ORDERED: Phytonadione Oral Solution* 5 MG/25 ML UDC PO ONE ×2 (12:46→18:00)
[2016-11-30] MEDS: BIMATOPROST 0.01% LEFT EYE SCH (21:05)
[2016-12-01] MEDS: Morphine INJ* 2 MG/ML 1 ML CARPUJECT IV PRN (05:15)
[2016-12-01] MEDS: Levothyroxine TAB* 125 MCG TAB PO SCH (05:53)
[2016-12-01] MEDS: Dofetilide CAP* 250 MCG PO SCH ×3 (05:53→20:11)
--- NOTE | 2016-12-01 07:16 | PN ---
Progress Note - Progress Note Note: NPO for OR today. plan for IMN right hip. Pt comfortable. Temp Pulse Resp BP Pulse Ox 98.8 F 75 18 142/53 96 12/01/16 03:39 12/01/16 03:39 12/01/16 06:15 12/01/16 03:39 12/01/16 03:39 NAD. Arousable. right leg externally rotated. able to dorsiflex/plantarflex ankle. flex/ext toes. brisk cap refill. SILT Laboratory Results - last 24 hr 11/30/16 12/01/16 05:35 06:06 INR (Anticoag Therapy) 1.43 H Blood Type A Positive Antibody Screen Negative Crossmatch See Detail A/P NPO for IMN for right hip today. INR 1.43 stabilized per medicine and cards recs bedrest. 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
[2016-12-01] MEDS: Atorvastatin* 20 MG TAB PO SCH ×2 (07:34→08:38)
[2016-12-01] MEDS: COMBIGAN LEFT EYE SCH ×2 (08:23→20:17)
[2016-12-01] MEDS: OPTH LEFT EYE SCH ×2 (08:24→20:15)
[2016-12-01] MEDS: DORZOLAMIDE 2% LEFT EYE SCH ×2 (08:24→20:15)
[2016-12-01] MEDS: Spironolactone TAB* 25 MG PO SCH (08:38)
[2016-12-01] MEDS: Torsemide TAB* 20 MG PO SCH (08:38)
[2016-12-01] MEDS ORDERED: Midazolam* 1 MG/ML 5 ML VIAL (5 MG) ONE (10:03)
[2016-12-01] MEDS ORDERED: fentaNYL* 50 MCG/ML 2 ML VIAL (100 MCG VIAL) ONE ×2 (10:03→15:37)
[2016-12-01] MEDS ORDERED: KETAMINE HCL* 50 MG/ML 10 ML VIAL ONE (10:03)
[2016-12-01] MEDS ORDERED: ceFAZolin 2 GM PREMIX (*) 2 GM/50 ML BAG IVPB ONE (10:06)
[2016-12-01] MEDS ORDERED: Bupivacaine 0.25% EPI 200,000* 30 ML SDV ONE (10:25)
[2016-12-01] MEDS ORDERED: Bupivacaine 0.25% SDV* 30 ML ONE (12:41)
[2016-12-01 14:01] LABS: Hematocrit 26 % (35-47); Hemoglobin 8.6 g/dl (12.0-16.0)
[2016-12-01] MEDS ORDERED: Phenylephrine INJ* 10 MG/ML 1 ML VIAL (10 MG) ONE (14:54)
[2016-12-01] MEDS ORDERED: Bupivacaine 0.5% SDV PF* 30 ML VIAL ONE (14:54)
[2016-12-01] MEDS ORDERED: Dexamethasone IV* 4 MG/ML 1 ML (4 MG) ONE (14:54)
[2016-12-01] MEDS ORDERED: Morphine INJ* 2 MG/ML 1 ML CARPUJECT IV PRN (14:59)
[2016-12-01] MEDS ORDERED: oxyCODONE/Acetamin 5/325 MG* TAB PO PRN (14:59)
--- NOTE | 2016-12-01 15:33 | RAD ---
INDICATION: Right hip fracture, operative reduction and internal fixation. COMPARISON: Comparison is made with a prior x-ray study of the right hip from November 29, 2016. TECHNIQUE: 3 minutes and 18 seconds of intermitted fluoroscopic were provided and AP and lateral films of the right hip and distal femur were obtained in the operating room. FINDINGS: The patient is status post operative reduction and internal fixation of a comminuted intertrochanteric fracture of the proximal right femur. There is an intramedullary lennie spanning the femur and femoral head nail. The bones are in improved alignment and positioning. IMPRESSION: INTRAOPERATIVE CONTROL FILMS. CPT II Codes: 6045F
[2016-12-01] MEDS: fentaNYL* 50 MCG/ML 2 ML VIAL (100 MCG VIAL) IV PRN ×2 (15:38→16:20)
--- NOTE | 2016-12-01 18:20 | PN ---
Subjective Date of Service: 12/01/16 Interval History: Patient seen and examined at bedside. She is resting comfortably and reports good pain control. Denies CP, SOB, abd pain, n/v. No acute nursing or patient concerns. Family History: Unchanged from Admission Social History: Unchanged from Admission Past Medical History: Unchanged from Admission Objective Active Medications: Atorvastatin Calcium (Lipitor*) 20 mg PO DAILY [facility] PRN Reason: Protocol Last Admin: 12/01/16 08:38 Dose: 20 mg Bimatoprost (Lumigan 0.01% Ophth (Nf)) 1 drop LEFT EYE BEDTIME [facility] Last Admin: 11/30/16 21:05 Dose: 1 drop Brimonidine/Timolol (Combigan Ophth (Nf)) 1 drop LEFT EYE BID [facility] Last Admin: 12/01/16 08:23 Dose: 1 drop Dofetilide (Tikosyn Cap*) 250 mcg PO BID [facility] Last Admin: 12/01/16 07:34 Dose: Not Given Dorzolamide HCl (Trusopt 2% Opth (Nf)) 1 drop LEFT EYE BID [facility] PRN Reason: Protocol Last Admin: 12/01/16 08:24 Dose: 1 drop Fentanyl Citrate (Fentanyl*) 25 mcg IV Q5M PRN PRN Reason: PAIN - MODERATE Stop: 12/01/16 18:30 Last Admin: 12/01/16 16:20 Dose: 25 mcg Sodium Chloride (Ns 0.9% 1000 Ml*) 1,000 mls @ 75 mls/hr IV PER RATE [facility] Last Admin: 11/30/16 21:15 Dose: 75 mls/hr Cefazolin Sodium/Dextrose (Kefzol 1 Gm In Dextrose Duplex (*)) 1 gm in 50 mls @ 200 mls/hr IVPB Q8H [facility] Stop: 12/02/16 12:14 Levothyroxine Sodium (Synthroid Tab*) 125 mcg PO 0600 [facility] Last Admin: 12/01/16 05:53 Dose: 125 mcg Morphine Sulfate (Morphine Inj (Syringe)*) 2 mg IV Q2H PRN PRN Reason: PAIN Last Admin: 12/01/16 05:15 Dose: 2 mg Morphine Sulfate (Morphine Inj (Syringe)*) 1 mg IV Q5M PRN PRN Reason: PAIN - SEVERE Stop: 12/01/16 18:30 Oxycodone/Acetaminophen (Percocet 5/325 Tab*) 1 tab PO ONCE PRN PRN Reason: PAIN - MODERATE Stop: 12/01/16 18:30 Oxycodone/Acetaminophen (Percocet 5/325 Tab*) 1 tab PO Q4H PRN PRN Reason: PAIN Oxycodone/Acetaminophen (Percocet 5/325 Tab*) 2 tab PO Q4H PRN PRN Reason: PAIN - MODERATE Spironolactone (Aldactone Tab*) 25 mg PO MOWEFR [facility] Last Admin: 12/01/16 08:38 Dose: 25 mg Torsemide (Demadex*) 20 mg PO MoWeFr@0900 [facility] Last Admin: 12/01/16 08:38 Dose: 20 mg Vital Signs 11/30/16 11/30/16 11/30/16 19:22 20:00 23:32 Temperature 98.5 F 98.9 F Pulse Rate 73 71 Respiratory 20 20 16 Rate Blood Pressure 137/57 127/45 (mmHg) O2 Sat by Pulse 98 97 Oximetry 12/01/16 12/01/16 12/01/16 03:39 05:15 06:15 Temperature 98.8 F Pulse Rate 75 Respiratory 16 20 18 Rate Blood Pressure 142/53 (mmHg) O2 Sat by Pulse 96 Oximetry 12/01/16 12/01/16 12/01/16 07:33 08:00 15:17 Temperature 98.4 F 97.9 F Pulse Rate 77 71 Respiratory 17 17 16 Rate Blood Pressure 148/72 136/56 (mmHg) O2 Sat by Pulse 95 98 Oximetry 12/01/16 12/01/16 12/01/16 15:20 15:25 15:30 Temperature Pulse Rate 71 74 69 Respiratory 16 16 16 Rate Blood Pressure 130/52 130/52 130/55 (mmHg) O2 Sat by Pulse 98 98 98 Oximetry 12/01/16 12/01/16 12/01/16 15:38 15:45 16:00 Temperature Pulse Rate 77 73 Respiratory 16 16 16 Rate Blood Pressure 126/55 127/50 (mmHg) O2 Sat by Pulse 98 99 Oximetry 12/01/16 12/01/16 12/01/16 16:15 16:20 16:30 Temperature 99.0 F Pulse Rate 75 76 Respiratory 16 16 16 Rate Blood Pressure 124/51 127/46 (mmHg) O2 Sat by Pulse 99 98 Oximetry 12/01/16 12/01/16 12/01/16 16:45 17:00 17:20 Temperature 100.1 F Pulse Rate 82 90 Respiratory 16 22 18 Rate Blood Pressure 127/46 118/60 (mmHg) O2 Sat by Pulse 98 95 Oximetry 12/01/16 18:07 Temperature 97.2 F Pulse Rate 69 Respiratory 20 Rate Blood Pressure 142/44 (mmHg) O2 Sat by Pulse 100 Oximetry Oxygen Devices in Use Now: None Appearance: Elderly female laying in bed, in NAD Eyes: PERRLA Ears/Nose/Mouth/Throat: Clear Oropharnyx, Mucous Membranes Moist Neck: NL Appearance and Movements; NL JVP Respiratory: Symmetrical Chest Expansion and Respiratory Effort, Clear to Auscultation Cardiovascular: NL Sounds; No Murmurs; No JVD, RRR Abdominal: NL Sounds; No Tenderness; No Distention Extremities: - - right hip dressing c/d/i, good distal movement/sensation, brisk cap refill Neurological: Alert and Oriented x 3 Lines/Tubes/Other Access: Clean, Dry and Intact Lara, Clean, Dry and Intact Peripheral IV Nutrition: Taking PO's Result Diagrams: 12/01/16 13:54 11/30/16 05:35 Additional Lab and Data: Lab Results 11/29/16 11/29/16 11/29/16 Range/Units 00:50 00:50 00:50 WBC 17.8 H (3.5-10.8) 10^3/ul RBC 4.06 (4.0-5.4) 10^6/ul Hgb 11.6 L (12.0-16.0) g/dl Hct 36 (35-47) % MCV 89 (80-97) fL MCH 29 (27-31) pg MCHC 32 (31-36) g/dl RDW 16 H (10.5-15) % Plt Count 218 (150-450) 10^3/ul MPV 9 (7.4-10.4) um3 Neut % (Auto) 80.0 (38-83) % Lymph % (Auto) 12.1 L (25-47) % Gallia % (Auto) 7.4 (1-9) % Eos % (Auto) 0.1 (0-6) % Baso % (Auto) 0.4 (0-2) % Absolute Neuts (auto) 14.2 H (1.5-7.7) 10^3/ul Absolute Lymphs (auto) 2.2 (1.0-4.8) 10^3/ul Absolute Monos (auto) 1.3 H (0-0.8) 10^3/ul Absolute Eos (auto) 0 (0-0.6) 10^3/ul Absolute Basos (auto) 0.1 (0-0.2) 10^3/ul Absolute Nucleated RBC 0 10^3/ul Nucleated RBC % 0 INR (Anticoag Therapy) 2.65 H (0.89-1.11) APTT 30.3 (26.0-36.3) seconds Sodium 133 (133-145) mmol/L Potassium 4.8 (3.5-5.0) mmol/L Chloride 99 L (101-111) mmol/L Carbon Dioxide 25 (22-32) mmol/L Anion Gap 9 (2-11) mmol/L BUN 32 H (6-24) mg/dL Creatinine 1.33 H (0.51-0.95) mg/dL Est GFR ( Amer) 48.6 (>60) Est GFR (Non-Af Amer) 37.8 (>60) BUN/Creatinine Ratio 24.1 H (8-20) Glucose 138 H (70-100) mg/dL Lactic Acid (0.5-2.0) mmol/L Calcium 9.1 (8.6-10.3) mg/dL Magnesium 1.9 (1.9-2.7) mg/dL Total Bilirubin 0.60 (0.2-1.0) mg/dL AST 24 (13-39) U/L ALT 16 (7-52) U/L Alkaline Phosphatase 48 (34-104) U/L Total Creatine Kinase 354 H (10-223) U/L CK-MB (CK-2) 13.5 H (0.6-6.3) ng/mL Troponin I 0.04 H* (<0.04) ng/mL C-Reactive Protein < 1.00 (< 5.00) mg/L Total Protein 6.9 (6.4-8.9) g/dL Albumin 3.8 (3.2-5.2) g/dL Globulin 3.1 (2-4) g/dL Albumin/Globulin Ratio 1.2 (1-3) Lipase 28 (11.0-82.0) U/L TSH 0.22 L (0.34-5.60) mcIU/mL 11/29/16 Range/Units 00:50 WBC (3.5-10.8) 10^3/ul RBC (4.0-5.4) 10^6/ul Hgb (12.0-16.0) g/dl Hct (35-47) % MCV (80-97) fL MCH (27-31) pg MCHC (31-36) g/dl RDW (10.5-15) % Plt Count (150-450) 10^3/ul MPV (7.4-10.4) um3 Neut % (Auto) (38-83) % Lymph % (Auto) (25-47) % Gallia % (Auto) (1-9) % Eos % (Auto) (0-6) % Baso % (Auto) (0-2) % Absolute Neuts (auto) (1.5-7.7) 10^3/ul Absolute Lymphs (auto) (1.0-4.8) 10^3/ul Absolute Monos (auto) (0-0.8) 10^3/ul Absolute Eos (auto) (0-0.6) 10^3/ul Absolute Basos (auto) (0-0.2) 10^3/ul Absolute Nucleated RBC 10^3/ul Nucleated RBC % INR (Anticoag Therapy) (0.89-1.11) APTT (26.0-36.3) seconds Sodium (133-145) mmol/L Potassium (3.5-5.0) mmol/L Chloride (101-111) mmol/L Carbon Dioxide (22-32) mmol/L Anion Gap (2-11) mmol/L BUN (6-24) mg/dL Creatinine (0.51-0.95) mg/dL Est GFR ( Amer) (>60) Est GFR (Non-Af Amer) (>60) BUN/Creatinine Ratio (8-20) Glucose (70-100) mg/dL Lactic Acid 2.7 H* (0.5-2.0) mmol/L Calcium (8.6-10.3) mg/dL Magnesium (1.9-2.7) mg/dL Total Bilirubin (0.2-1.0) mg/dL AST (13-39) U/L ALT (7-52) U/L Alkaline Phosphatase (34-104) U/L Total Creatine Kinase (10-223) U/L CK-MB (CK-2) (0.6-6.3) ng/mL Troponin I (<0.04) ng/mL C-Reactive Protein (< 5.00) mg/L Total Protein (6.4-8.9) g/dL Albumin (3.2-5.2) g/dL Globulin (2-4) g/dL Albumin/Globulin Ratio (1-3) Lipase (11.0-82.0) U/L TSH (0.34-5.60) mcIU/mL Assess/Plan/Problems-Billing Assessment: Ms. Pompa is an 86 yo female with a PMH of paroxysmal afib, dual chamber pacemaker placement, cardiomyopathy EF 45%, systolic and diastolic heart failure , BALJIT, hypothyroidism, HTN, HLD, bullous pemphigoid, and colon cancer who was admitted 11/29/16 for right hip fracture sustained during mechanical fall. - Patient Problems (1) Closed right hip fracture Code(s): S72.001A - FRACTURE OF UNSP PART OF NECK OF RIGHT FEMUR, INIT Comment : Management per ortho, POD#0 Pain management PT/OT consult tomorrow (2) Paroxysmal atrial fibrillation Code(s): I48.0 - PAROXYSMAL ATRIAL FIBRILLATION Comment: Stable, not currently in a fib. Continue Tikosyn Hold warfarin in the preoperative period; may resume per ortho (3) Cardiomyopathy Code(s): I42.9 - CARDIOMYOPATHY, UNSPECIFIED Comment: Most recently documented EF is 45% (4) Systolic and diastolic CHF, chronic Code(s): I50.42 - CHRONIC COMBINED SYSTOLIC AND DIASTOLIC HRT FAIL Comment: Chronic intermittent, does not appear to be in acute exacerbation Continue torsemide, spironolactone (5) BALJIT (obstructive sleep apnea) Code(s): G47.33 - OBSTRUCTIVE SLEEP APNEA (ADULT) (PEDIATRIC) Comment: Does not tolerate CPAP (6) Hypothyroidism Code(s): E03.9 - HYPOTHYROIDISM, UNSPECIFIED Comment: Continue levothyroxine (7) HTN (hypertension) Code(s): I10 - ESSENTIAL (PRIMARY) HYPERTENSION Comment: Controlled. Continue home medications. (8) Dyslipidemia Code(s): E78.5 - HYPERLIPIDEMIA, UNSPECIFIED Comment: Continue statin. (9) DVT prophylaxis Comment: Will hold anticoagulation prior to surgery; will resume when okayed by ortho Status and Disposition: Inpatient admission. Anticipate LOS >2 days.
[2016-12-01] MEDS: ceFAZolin 1 GM in Dextrose (*) 1 GM/50 ML BAG IVPB SCH (20:08)
[2016-12-01] MEDS: Warfarin TAB(*) 5 MG PO SCH (20:11)
[2016-12-01] MEDS: BIMATOPROST 0.01% LEFT EYE SCH (20:18)
[2016-12-01] MEDS: oxyCODONE/Acetamin 5/325 MG* TAB PO PRN (22:23)
[2016-12-02] MEDS: ceFAZolin 1 GM in Dextrose (*) 1 GM/50 ML BAG IVPB SCH ×2 (04:23→13:09)
[2016-12-02] MEDS: Levothyroxine TAB* 125 MCG TAB PO SCH (06:04)
[2016-12-02] MEDS: oxyCODONE/Acetamin 5/325 MG* TAB PO PRN ×3 (06:04→20:57)
[2016-12-02 06:10] LABS: Hematocrit 22 % (35-47); Hemoglobin 7.2 g/dl (12.0-16.0)
[2016-12-02 06:31] LABS: Calcium 7.7 mg/dL (8.6-10.3); EGFR African American 71.7 (>60); EGFR Non-African American 55.8 (>60); Potassium 4.1 mmol/L (3.5-5.0)
--- NOTE | 2016-12-02 10:07 | PN ---
Progress Note - Progress Note SOAP: Subjective: [Pt was seen this morning. She states that she is not having much pain at rest but is having some pain when she is activly moving her hip. She denies any chest pain, palpitations, calf pain or SOB. ] Objective: [General: Pt is alert and oriented. Appears drowsy. No acute distress. MSK: RLE: Bottom dressing is c/d/i. Top dressing has a small dime sized amount of blood on it but is otherwise c/d/i. The pt is able to lift thigh up slightly. The pt can move ankles and toes. Sensation is grossly intact distal to the incision. Pt has 2+ DP. ] Vital Signs Temp 97.8 F 12/02/16 07:38 Pulse 80 12/02/16 07:38 Resp 16 12/02/16 08:25 BP 120/59 12/02/16 07:38 Pulse Ox 94 12/02/16 07:38 Intake & Output 12/01/16 12/02/16 12/02/16 18:59 06:59 18:59 Intake Total 1708 660 Output Total 250 775 Balance 1458 -115 Intake: IV Fluids 1708 250 LR 850 NS (0.9%) 758 250 NS 100ML, Cefazolin 2G 100 IVPB 110 ABX - CEFAZOLIN 110 Oral 300 Output: Lara 250 775 Other: Estimated Blood Loss 400 Comment Assessment: [S/P IMN of the R hip. POD#1] Plan: [Continue antibiotics Start PT/OT today Blood ordered per hospitalists. Will continue to monitor pt. Hospitalists to continue managing pts co-morbidities. ]
[2016-12-02] MEDS: Dofetilide CAP* 250 MCG PO SCH ×2 (10:13→20:51)
[2016-12-02] MEDS: Atorvastatin* 20 MG TAB PO SCH (10:13)
[2016-12-02] MEDS: COMBIGAN LEFT EYE SCH ×2 (10:16→20:51)
[2016-12-02] MEDS: OPTH LEFT EYE SCH ×2 (10:17→20:50)
[2016-12-02] MEDS: DORZOLAMIDE 2% LEFT EYE SCH ×2 (10:17→20:50)
--- NOTE | 2016-12-02 10:19 | PN ---
Subjective Date of Service: 12/02/16 Interval History: Patient seen and examined at bedside. She asks, "Is someone taping me?" Patient reoriented to time and place. She appeared to reorient easily. Nursing aware. Ms. Pompa denies CP, SOB, abd pain, n/v. She states her pain is well controlled. No other complaints from patient, currently she is OOB to chair. Family History: Unchanged from Admission Social History: Unchanged from Admission Past Medical History: Unchanged from Admission Objective Active Medications: Atorvastatin Calcium (Lipitor*) 20 mg PO DAILY CARLOS PRN Reason: Protocol Last Admin: 12/01/16 08:38 Dose: 20 mg Bimatoprost (Lumigan 0.01% Ophth (Nf)) 1 drop LEFT EYE BEDTIME CARLOS Last Admin: 12/01/16 20:18 Dose: 1 drop Brimonidine/Timolol (Combigan Ophth (Nf)) 1 drop LEFT EYE BID [facility] Last Admin: 12/01/16 20:17 Dose: 1 drop Dofetilide (Tikosyn Cap*) 250 mcg PO BID CARLOS Last Admin: 12/01/16 20:11 Dose: 250 mcg Dorzolamide HCl (Trusopt 2% Opth (Nf)) 1 drop LEFT EYE BID CARLOS PRN Reason: Protocol Last Admin: 12/01/16 20:15 Dose: 1 drop Sodium Chloride (Ns 0.9% 1000 Ml*) 1,000 mls @ 75 mls/hr IV PER RATE [facility] Last Admin: 11/30/16 21:15 Dose: 75 mls/hr Cefazolin Sodium/Dextrose (Kefzol 1 Gm In Dextrose Duplex (*)) 1 gm in 50 mls @ 200 mls/hr IVPB Q8H [facility] Stop: 12/02/16 12:14 Last Admin: 12/02/16 04:23 Dose: 200 mls/hr Levothyroxine Sodium (Synthroid Tab*) 125 mcg PO 0600 [facility] Last Admin: 12/02/16 06:04 Dose: 125 mcg Morphine Sulfate (Morphine Inj (Syringe)*) 2 mg IV Q2H PRN PRN Reason: PAIN Last Admin: 12/01/16 05:15 Dose: 2 mg Oxycodone/Acetaminophen (Percocet 5/325 Tab*) 1 tab PO Q4H PRN PRN Reason: PAIN Oxycodone/Acetaminophen (Percocet 5/325 Tab*) 2 tab PO Q4H PRN PRN Reason: PAIN - MODERATE Last Admin: 12/02/16 06:04 Dose: 2 tab Spironolactone (Aldactone Tab*) 25 mg PO MOWEFR [facility] Last Admin: 12/01/16 08:38 Dose: 25 mg Torsemide (Demadex*) 20 mg PO MoWeFr@0900 [facility] Last Admin: 12/01/16 08:38 Dose: 20 mg Warfarin Sodium (Coumadin Tab(*)) 5 mg PO SuMoTuWeFrSa@1700 [facility] Last Admin: 12/01/16 20:11 Dose: 5 mg Warfarin Sodium (Coumadin Tab(*)) 2.5 mg PO Th@1700 [facility] Vital Signs 12/01/16 12/01/16 12/01/16 15:17 15:20 15:25 Temperature 97.9 F Pulse Rate 71 71 74 Respiratory 16 16 16 Rate Blood Pressure 136/56 130/52 130/52 (mmHg) O2 Sat by Pulse 98 98 98 Oximetry 12/01/16 12/01/16 12/01/16 15:30 15:38 15:45 Temperature Pulse Rate 69 77 Respiratory 16 16 16 Rate Blood Pressure 130/55 126/55 (mmHg) O2 Sat by Pulse 98 98 Oximetry 12/01/16 12/01/16 12/01/16 16:00 16:15 16:20 Temperature Pulse Rate 73 75 Respiratory 16 16 16 Rate Blood Pressure 127/50 124/51 (mmHg) O2 Sat by Pulse 99 99 Oximetry 12/01/16 12/01/16 12/01/16 16:30 16:45 17:00 Temperature 99.0 F 100.1 F Pulse Rate 76 82 90 Respiratory 16 16 22 Rate Blood Pressure 127/46 127/46 118/60 (mmHg) O2 Sat by Pulse 98 98 95 Oximetry 12/01/16 12/01/16 12/01/16 17:20 18:07 19:26 Temperature 97.2 F 97.5 F Pulse Rate 69 69 Respiratory 18 20 24 Rate Blood Pressure 142/44 136/49 (mmHg) O2 Sat by Pulse 100 100 Oximetry 12/01/16 12/01/16 12/01/16 21:09 22:23 22:25 Temperature 97.8 F Pulse Rate 74 Respiratory 24 20 20 Rate Blood Pressure 127/49 (mmHg) O2 Sat by Pulse 98 Oximetry 12/01/16 12/02/16 12/02/16 23:28 00:23 03:33 Temperature 98.5 F 98.0 F Pulse Rate 73 78 Respiratory 18 18 16 Rate Blood Pressure 109/43 113/50 (mmHg) O2 Sat by Pulse 97 99 Oximetry 12/02/16 12/02/16 12/02/16 06:04 07:38 08:25 Temperature 97.8 F Pulse Rate 80 Respiratory 20 16 16 Rate Blood Pressure 120/59 (mmHg) O2 Sat by Pulse 94 Oximetry Oxygen Devices in Use Now: None Appearance: Elderly female, OOB to chair, mildly tachypneic but in NAD Eyes: PERRLA Ears/Nose/Mouth/Throat: Mucous Membranes Moist Neck: NL Appearance and Movements; NL JVP Respiratory: Symmetrical Chest Expansion and Respiratory Effort, Clear to Auscultation Cardiovascular: NL Sounds; No Murmurs; No JVD, RRR Abdominal: NL Sounds; No Tenderness; No Distention Extremities: - - right hip dressing with small amount of old bloody drainage, otherwise intact, brisk cap refill and distal sensation/movement intact Neurological: - - alert, oriented to self, disoriented to time/place Lines/Tubes/Other Access: Clean, Dry and Intact Lara, Clean, Dry and Intact Peripheral IV Nutrition: Taking PO's Result Diagrams: 12/02/16 05:59 12/02/16 05:59 Additional Lab and Data: Lab Results 11/29/16 11/29/16 11/29/16 Range/Units 00:50 00:50 00:50 WBC 17.8 H (3.5-10.8) 10^3/ul RBC 4.06 (4.0-5.4) 10^6/ul Hgb 11.6 L (12.0-16.0) g/dl Hct 36 (35-47) % MCV 89 (80-97) fL MCH 29 (27-31) pg MCHC 32 (31-36) g/dl RDW 16 H (10.5-15) % Plt Count 218 (150-450) 10^3/ul MPV 9 (7.4-10.4) um3 Neut % (Auto) 80.0 (38-83) % Lymph % (Auto) 12.1 L (25-47) % Zapata % (Auto) 7.4 (1-9) % Eos % (Auto) 0.1 (0-6) % Baso % (Auto) 0.4 (0-2) % Absolute Neuts (auto) 14.2 H (1.5-7.7) 10^3/ul Absolute Lymphs (auto) 2.2 (1.0-4.8) 10^3/ul Absolute Monos (auto) 1.3 H (0-0.8) 10^3/ul Absolute Eos (auto) 0 (0-0.6) 10^3/ul Absolute Basos (auto) 0.1 (0-0.2) 10^3/ul Absolute Nucleated RBC 0 10^3/ul Nucleated RBC % 0 INR (Anticoag Therapy) 2.65 H (0.89-1.11) APTT 30.3 (26.0-36.3) seconds Sodium 133 (133-145) mmol/L Potassium 4.8 (3.5-5.0) mmol/L Chloride 99 L (101-111) mmol/L Carbon Dioxide 25 (22-32) mmol/L Anion Gap 9 (2-11) mmol/L BUN 32 H (6-24) mg/dL Creatinine 1.33 H (0.51-0.95) mg/dL Est GFR ( Amer) 48.6 (>60) Est GFR (Non-Af Amer) 37.8 (>60) BUN/Creatinine Ratio 24.1 H (8-20) Glucose 138 H (70-100) mg/dL Lactic Acid (0.5-2.0) mmol/L Calcium 9.1 (8.6-10.3) mg/dL Magnesium 1.9 (1.9-2.7) mg/dL Total Bilirubin 0.60 (0.2-1.0) mg/dL AST 24 (13-39) U/L ALT 16 (7-52) U/L Alkaline Phosphatase 48 (34-104) U/L Total Creatine Kinase 354 H (10-223) U/L CK-MB (CK-2) 13.5 H (0.6-6.3) ng/mL Troponin I 0.04 H* (<0.04) ng/mL C-Reactive Protein < 1.00 (< 5.00) mg/L Total Protein 6.9 (6.4-8.9) g/dL Albumin 3.8 (3.2-5.2) g/dL Globulin 3.1 (2-4) g/dL Albumin/Globulin Ratio 1.2 (1-3) Lipase 28 (11.0-82.0) U/L TSH 0.22 L (0.34-5.60) mcIU/mL 11/29/16 Range/Units 00:50 WBC (3.5-10.8) 10^3/ul RBC (4.0-5.4) 10^6/ul Hgb (12.0-16.0) g/dl Hct (35-47) % MCV (80-97) fL MCH (27-31) pg MCHC (31-36) g/dl RDW (10.5-15) % Plt Count (150-450) 10^3/ul MPV (7.4-10.4) um3 Neut % (Auto) (38-83) % Lymph % (Auto) (25-47) % Zapata % (Auto) (1-9) % Eos % (Auto) (0-6) % Baso % (Auto) (0-2) % Absolute Neuts (auto) (1.5-7.7) 10^3/ul Absolute Lymphs (auto) (1.0-4.8) 10^3/ul Absolute Monos (auto) (0-0.8) 10^3/ul Absolute Eos (auto) (0-0.6) 10^3/ul Absolute Basos (auto) (0-0.2) 10^3/ul Absolute Nucleated RBC 10^3/ul Nucleated RBC % INR (Anticoag Therapy) (0.89-1.11) APTT (26.0-36.3) seconds Sodium (133-145) mmol/L Potassium (3.5-5.0) mmol/L Chloride (101-111) mmol/L Carbon Dioxide (22-32) mmol/L Anion Gap (2-11) mmol/L BUN (6-24) mg/dL Creatinine (0.51-0.95) mg/dL Est GFR ( Amer) (>60) Est GFR (Non-Af Amer) (>60) BUN/Creatinine Ratio (8-20) Glucose (70-100) mg/dL Lactic Acid 2.7 H* (0.5-2.0) mmol/L Calcium (8.6-10.3) mg/dL Magnesium (1.9-2.7) mg/dL Total Bilirubin (0.2-1.0) mg/dL AST (13-39) U/L ALT (7-52) U/L Alkaline Phosphatase (34-104) U/L Total Creatine Kinase (10-223) U/L CK-MB (CK-2) (0.6-6.3) ng/mL Troponin I (<0.04) ng/mL C-Reactive Protein (< 5.00) mg/L Total Protein (6.4-8.9) g/dL Albumin (3.2-5.2) g/dL Globulin (2-4) g/dL Albumin/Globulin Ratio (1-3) Lipase (11.0-82.0) U/L TSH (0.34-5.60) mcIU/mL Assess/Plan/Problems-Billing Assessment: Ms. Pompa is an 86 yo female with a PMH of paroxysmal afib, dual chamber pacemaker placement, cardiomyopathy EF 45%, systolic and diastolic heart failure , BALJIT, hypothyroidism, HTN, HLD, bullous pemphigoid, and colon cancer who was admitted 11/29/16 for right hip fracture sustained during mechanical fall. - Patient Problems (1) Closed right hip fracture Code(s): S72.001A - FRACTURE OF UNSP PART OF NECK OF RIGHT FEMUR, INIT Comment : Management per ortho, POD#1 Transfuse 2 units PRBC for 7.01/19 Pain management PT/OT consults, PMRU referral (2) Paroxysmal atrial fibrillation Code(s): I48.0 - PAROXYSMAL ATRIAL FIBRILLATION Comment: Stable, not currently in a fib. Continue Tikosyn Restart warfarin tonight (3) Cardiomyopathy Code(s): I42.9 - CARDIOMYOPATHY, UNSPECIFIED Comment: Most recently documented EF is 45% (4) Systolic and diastolic CHF, chronic Code(s): I50.42 - CHRONIC COMBINED SYSTOLIC AND DIASTOLIC HRT FAIL Comment: Chronic intermittent, does not appear to be in acute exacerbation Continue torsemide, spironolactone (5) BALJIT (obstructive sleep apnea) Code(s): G47.33 - OBSTRUCTIVE SLEEP APNEA (ADULT) (PEDIATRIC) Comment: Does not tolerate CPAP (6) Hypothyroidism Code(s): E03.9 - HYPOTHYROIDISM, UNSPECIFIED Comment: Continue levothyroxine (7) HTN (hypertension) Code(s): I10 - ESSENTIAL (PRIMARY) HYPERTENSION Comment: Controlled. Continue home medications. (8) Dyslipidemia Code(s): E78.5 - HYPERLIPIDEMIA, UNSPECIFIED Comment: Continue statin. (9) DVT prophylaxis Comment: Restart warfarin today Status and Disposition: Inpatient admission. Anticipate LOS >2 days.
[2016-12-02] MEDS ORDERED: Warfarin TAB(*) 2.5 MG PO SCH (17:00)
--- NOTE | 2016-12-02 19:07 | OP ---
CC: PCP OPERATIVE REPORT: DATE OF OPERATION: 12/01/16 DATE OF : 30 SURGEON: Stephanie Patton MD ACQUISITION MARKETING COORDINATOR: PAUL Steinberg An elementary assistant teacher was needed for the entirety of the case to help with positioning, retraction, holding the reduction, and closure, and was utilized throughout all portions of the case. ANESTHESIOLOGIST: Dr. Call. ANESTHESIA: Spinal with MAC. PRE-OP DIAGNOSIS: Right subtrochanteric hip fracture. POST-OP DIAGNOSIS: Right subtrochanteric hip fracture. OPERATIVE PROCEDURE: Open reduction and internal fixation; open reduction with intramedullary lennie of the right femur. INDICATIONS: Martha Pompa is an 86-year-old female who slipped on the ice while going to the car late on Tuesday. She sustained an injury to her hip, was unable to weight bear. She presented to the ER and was diagnosed with subtrochanteric hip fracture. It was not significantly displaced but it was comminuted. After being admitted and optimized, her Coumadin was stopped and normalized. She underwent risk assessment by Cardiology, as well as Medicine and she is optimized for surgery today. Risks, benefits and surgery were discussed at length including but not limited to bleeding, infection, damage to nerves, vessels, surrounding structures, wound nonhealing, persistent pain, need for further surgery, risk of anesthesia, risk of DVT, stroke, and heart attack. She and her son elected to proceed with surgery. ESTIMATED BLOOD LOSS: 200 cc. COMPLICATIONS: None. IMPLANTS USED: Synthes TFN with size 11 x 360 nail and a 95-mm blade and the appropriate distal interlock screw. DISPOSITION: Stable. DESCRIPTION OF PROCEDURE: The patient was greeted in the preoperative area by attending surgeon. Correct extremity was marked and consent was confirmed. The patient was then brought back to the operating suite. She was left on her hospital bed. She then underwent spinal anesthesia which she tolerated without difficulty. The patient was then placed in a traction table. A well-padded perineal post was placed for traction. The left leg, the nonoperative leg, was then placed in the well-leg fernandez and abducted and flexed to be out of way. The right leg was placed in traction, well padded, and then placed in a traction boot after which fluoroscopy was used to help facilitate reduction closed. Once an acceptable reduction was obtained, the right hip was then prepped and draped in the usual sterile fashion beginning with the prescrub of chlorhexidine soap and alcohol, and a final prep of ChloraPrep. After appropriate surgical pause indicating site, side, procedure, and administration of antibiotics, a 10 blade was used to make an incision proximal to the greater trochanter. The soft tissues were carefully dissected. The patient is somewhat obese and this took some time to get to the deep tissues. Added to the complexity of the case, the fascia was identified and due to her habitus, we were unable to place the guidewire the traditional way. Therefore, the awl was used to find the starting point and after that was done, it was appropriately seated with the elementary assistant teacher placing pressure on the lateral aspect of the proximal fragment to help facilitate reduction. The ball-tip guidewire that had gentle bend placed prior to implanting. It was then passed under fluoroscopic visualization into the center of the shaft. Once this was passed, care was taken to then open the canal with a 16-mm reamer. This allowed for facilitation of the reaming devices. Beginning with a 10-mm reamer, this was reamed on the canal length. The femoral length was measured to be about around 400 mm. This was with the lennie along the midline of the patella. Therefore, the final length was chosen to be about 360 mm. The reaming was completed sequentially with care to try to maintain the reduction on the fracture fragment. The reaming was continued to about 12.5 when there was a good amount of chatter that was appreciated. At this point, the size 11 x 360 mm lennie was chosen. This was then passed again under fluoroscopic guidance with care to try to maintain the reduction by applying the appropriate amount of traction or pressure. An extra incision was made along the length of the femur to help with facilitation of the fracture fragment. This allowed us to visualize as well as palpate and help provisionally reduce the fracture. After the lennie was passed, the femoral neck aiming guide was assembled. The guidewire was then placed in the appropriate position after it was confirmed on the AP and lateral views to be acceptable. This was then measured and found to be a depth of about 103 mm. This was in the subchondral bone. The decision was made to go slightly smaller than that; therefore, a blade of 95 mm was chosen. After this was done, the lateral cortex was opened using the opening drill and then the length of the wire was then predrilled prior to blade placement. After this was done, the blade was then impacted into position which allowed for a nice reapproximation. The nail was then secured proximally. At this point, attention was directed distally to the femur. The AP and lateral views were obtained to make sure that the lennie was intramedullary and that it was not perforating anteriorly. After securing the nail proximally, one distal interlock screw in the static hole was then placed bicortically. The wound was then copiously irrigated. The fascial layers were closed with 0 Vicryl in an uninterrupted fashion. Few sutures were placed in the fat and then the subcutaneous tissues were closed with 2-0 Vicryl and the skin with odessa. Sterile dressings were applied. The wound was injected with 0.25% Marcaine plain. She was then awoken from anesthesia and transferred to the PACU in stable condition. POSTOPERATIVE PLAN: She will be partial weightbearing for about about 6 weeks. She will restart her Coumadin tomorrow. We will place her on antibiotics for 24 hours postoperatively. We will check her hematocrit and her blood counts to make sure and to see if she is symptomatic requiring transfusion. I will continue to follow her in the hospital and then I will see her postoperatively. [id number]/[facility] #: [id number] DAYA
--- NOTE | 2016-12-02 20:17 | PN ---
Progress Note - Progress Note Note: Pt seen and examined. In chair getting sponge bath. Comfortable. Receiving 2 units prbcs. No complaints. Temp Pulse Resp BP Pulse Ox 97.3 F 80 18 115/53 98 12/02/16 18:58 12/02/16 18:58 12/02/16 18:58 12/02/16 18:58 12/02/16 18:58 NAD. RLE: Dressing in place. Calf soft, nontender. able to DF/PF foot. Flex/ext toes. Brisk cap refill. Sensate to light touch grossly. Laboratory Results - last 24 hr 11/30/16 12/02/16 12/02/16 05:35 05:59 05:59 Hgb 7.2 L Hct 22 L Sodium 132 L Potassium 4.1 Chloride 98 L Carbon Dioxide 28 Anion Gap 6 BUN 19 Creatinine 0.95 Est GFR ( Amer) 71.7 Est GFR (Non-Af Amer) 55.8 BUN/Creatinine Ratio 20.0 Glucose 170 H Calcium 7.7 L Blood Type A Positive Antibody Screen Negative Crossmatch See Detail A/P POD#1 from R hip IMN for subtroch fracture Doing well. pain controlled PT/OT- PWB ABLA with last HCT of 22. Receiving transfusion currently. Restart coumadin when able. Lovenox for bridge. cont mobilization dressing change tomorrow.
[2016-12-02] MEDS: BIMATOPROST 0.01% LEFT EYE SCH (20:50)
[2016-12-02] MEDS ORDERED: Senna TAB PO PRN (21:38)
[2016-12-02] MEDS: Docusate CAP* 100 MG PO SCH (22:21)
[2016-12-03] MEDS: Levothyroxine TAB* 125 MCG TAB PO SCH (05:39)
[2016-12-03 07:36] LABS: Hematocrit 28 % (35-47); Hemoglobin 9.4 g/dl (12.0-16.0)
--- NOTE | 2016-12-03 07:54 | PN ---
Progress Note - Progress Note SOAP: Subjective: [86 y/o female s/p ORIF, intramedullary nailing of R femoral fracture 12/01/2016. Patient sitting comfortably, states no pain at rest, other pain controlled with pain medications. no questions/ concerns about surgery. ] Objective: []General- Well appearing, sitting up in chair comfortably, audible wheezing. MSK- Surgical dressing removed, incision c/d/i, odessa in place, minmal tenderness wtih palpation over incision, dressed with dry gauze, PT pulses 1+ b/ l, mild non-pitting edema b/l LE's, mild ecchymosis noted around incisions. sensation intact to light touch, neg homans sign b/l, dorsiflex/ plantarflex at ankles equal b/l. Vital Signs Temp 99.2 F 12/03/16 03:54 Pulse 80 12/03/16 03:54 Resp 18 12/03/16 03:54 BP 146/76 12/03/16 03:54 Pulse Ox 97 12/03/16 03:54 Intake & Output 12/02/16 12/03/16 12/03/16 18:59 06:59 18:59 Intake Total 1081 906 Output Total 275 750 Balance 806 156 Intake: IV Fluids 44 48 NS (0.9%) 44 48 Oral 750 520 Packed Cells 287 338 Output: Urine 400 Lara 275 350 Other: # Bowel Movements 0 Active Medications Generic Name Dose Route Start Last Admin Trade Name Freq PRN Reason Stop Dose Admin Atorvastatin Calcium 20 mg 11/29/16 09:00 12/02/16 10:13 Lipitor* PO 20 mg DAILY CARLOS Administration Protocol Bimatoprost 1 drop 11/29/16 21:00 12/02/16 20:50 Lumigan 0.01% Ophth (Nf) LEFT EYE 1 drop BEDTIME CARLOS Administration Brimonidine/Timolol 1 drop 11/30/16 21:00 12/02/16 20:51 Combigan Ophth (Nf) LEFT EYE 1 drop BID CARLOS Administration Docusate Sodium 100 mg 12/02/16 22:00 12/02/16 22:21 Colace Cap* PO 100 mg BID CARLOS Administration Dofetilide 250 mcg 11/29/16 06:30 12/02/16 20:51 Tikosyn Cap* PO 250 mcg BID CARLOS Administration Dorzolamide HCl 1 drop 11/29/16 21:00 12/02/16 20:50 Trusopt 2% Opth (Nf) LEFT EYE 1 drop BID CARLOS Administration Protocol Sodium Chloride 1,000 mls @ 75 mls/hr 11/29/16 16:33 11/30/16 21:15 Ns 0.9% 1000 Ml* IV 75 mls/hr PER RATE CARLOS Administration Levothyroxine Sodium 125 mcg 11/29/16 06:30 12/03/16 05:39 Synthroid Tab* PO 125 mcg 0600 CARLOS Administration Morphine Sulfate 2 mg 11/29/16 04:33 12/01/16 05:15 Morphine Inj (Syringe)* IV 2 mg Q2H PRN Administration PAIN Oxycodone/Acetaminophen 1 tab 12/01/16 17:46 12/02/16 20:57 Percocet 5/325 Tab* PO 1 tab Q4H PRN Administration PAIN Oxycodone/Acetaminophen 2 tab 12/01/16 17:46 12/02/16 06:04 Percocet 5/325 Tab* PO 2 tab Q4H PRN Administration PAIN - MODERATE Senna 2 tab 12/02/16 21:38 12/02/16 22:21 Senokot Tab* PO 2 tab BEDTIME PRN Administration CONSTIPATION Spironolactone 25 mg 12/01/16 09:00 12/01/16 08:38 Aldactone Tab* PO 25 mg MOWEFR CARLOS Administration Torsemide 20 mg 11/29/16 09:00 12/01/16 08:38 Demadex* PO 20 mg MoWeFr@0900 CARLOS Administration Warfarin Sodium 5 mg 12/01/16 19:30 12/01/16 20:11 Coumadin Tab(*) PO 5 mg SuMoTuWeFrSa@1700 CARLOS Administration Warfarin Sodium 2.5 mg 12/02/16 17:00 12/02/16 17:39 Coumadin Tab(*) PO 2.5 mg Th@1700 CARLOS Administration Laboratory Results - last 24 hr 11/30/16 12/03/16 12/03/16 05:35 06:23 06:32 Hgb 9.4 L Hct 28 L INR (Anticoag Therapy) 1.24 H Blood Type A Positive Antibody Screen Negative Crossmatch See Detail Assessment: [86 y/o female s/p ORIF, intramedullary nailing of R femoral fracture 12/01/2016] Plan: [- DVT prophyl- Continue lovenox, coumadin restarted yesterday - Anemia- transfused 2 Units yesterday, H&H appropriate at , continue to monitor - Continue PT/ OT - Likely placement at D/C. ]
[2016-12-03] MEDS: Spironolactone TAB* 25 MG PO SCH (09:48)
[2016-12-03] MEDS: Atorvastatin* 20 MG TAB PO SCH (09:48)
[2016-12-03] MEDS: Torsemide TAB* 20 MG PO SCH (09:48)
[2016-12-03] MEDS: Docusate CAP* 100 MG PO SCH ×2 (09:49→21:48)
[2016-12-03] MEDS: oxyCODONE/Acetamin 5/325 MG* TAB PO PRN ×4 (09:49→22:20)
[2016-12-03] MEDS: Dofetilide CAP* 250 MCG PO SCH ×2 (09:53→21:48)
--- NOTE | 2016-12-03 09:53 | PN ---
Subjective Date of Service: 12/03/16 Interval History: Patient seen and examined at bedside. She is OOB to chair. She states, "Yesterday, they say I was really out of it. I feel better today." She wants to go home, stating, "I was doing pretty good there before and I'm all on one level." Patient reports voiding in the bathroom. Denies fever/chills, CP, SOB, abd pain. Pain adequately controlled with pain medication. Family History: Unchanged from Admission Social History: Unchanged from Admission Past Medical History: Unchanged from Admission Objective Active Medications: Atorvastatin Calcium (Lipitor*) 20 mg PO DAILY [facility] PRN Reason: Protocol Last Admin: 12/03/16 09:48 Dose: 20 mg Bimatoprost (Lumigan 0.01% Ophth (Nf)) 1 drop LEFT EYE BEDTIME [facility] Last Admin: 12/02/16 20:50 Dose: 1 drop Brimonidine/Timolol (Combigan Ophth (Nf)) 1 drop LEFT EYE BID [facility] Last Admin: 12/02/16 20:51 Dose: 1 drop Docusate Sodium (Colace Cap*) 100 mg PO BID [facility] Last Admin: 12/03/16 09:49 Dose: 100 mg Dofetilide (Tikosyn Cap*) 250 mcg PO BID [facility] Last Admin: 12/02/16 20:51 Dose: 250 mcg Dorzolamide HCl (Trusopt 2% Opth (Nf)) 1 drop LEFT EYE BID [facility] PRN Reason: Protocol Last Admin: 12/02/16 20:50 Dose: 1 drop Enoxaparin Sodium (Lovenox(*)) 90 mg SUBCUT Q12H [facility] Sodium Chloride (Ns 0.9% 1000 Ml*) 1,000 mls @ 75 mls/hr IV PER RATE [facility] Last Admin: 11/30/16 21:15 Dose: 75 mls/hr Levothyroxine Sodium (Synthroid Tab*) 125 mcg PO 0600 [facility] Last Admin: 12/03/16 05:39 Dose: 125 mcg Morphine Sulfate (Morphine Inj (Syringe)*) 2 mg IV Q2H PRN PRN Reason: PAIN Last Admin: 12/01/16 05:15 Dose: 2 mg Oxycodone/Acetaminophen (Percocet 5/325 Tab*) 1 tab PO Q4H PRN PRN Reason: PAIN Last Admin: 12/03/16 09:49 Dose: 1 tab Oxycodone/Acetaminophen (Percocet 5/325 Tab*) 2 tab PO Q4H PRN PRN Reason: PAIN - MODERATE Last Admin: 12/02/16 06:04 Dose: 2 tab Senna (Senokot Tab*) 2 tab PO BEDTIME PRN PRN Reason: CONSTIPATION Last Admin: 12/02/16 22:21 Dose: 2 tab Spironolactone (Aldactone Tab*) 25 mg PO MOWEFR [facility] Last Admin: 12/03/16 09:48 Dose: 25 mg Torsemide (Demadex*) 20 mg PO MoWeFr@0900 [facility] Last Admin: 12/03/16 09:48 Dose: 20 mg Warfarin Sodium (Coumadin Tab(*)) 5 mg PO SuMoTuWeFrSa@1700 [facility] Last Admin: 12/01/16 20:11 Dose: 5 mg Warfarin Sodium (Coumadin Tab(*)) 2.5 mg PO Th@1700 [facility] Last Admin: 12/02/16 17:39 Dose: 2.5 mg Vital Signs 12/02/16 12/02/16 12/02/16 12:09 14:22 14:38 Temperature 97.3 F Pulse Rate 80 80 Respiratory 18 16 20 Rate Blood Pressure 121/51 105/45 (mmHg) O2 Sat by Pulse 99 95 Oximetry 12/02/16 12/02/16 12/02/16 15:00 16:22 17:50 Temperature 97.8 F 97.7 F Pulse Rate 80 80 Respiratory 18 16 20 Rate Blood Pressure 96/47 120/59 (mmHg) O2 Sat by Pulse 98 97 Oximetry 12/02/16 12/02/16 12/02/16 18:58 20:30 20:57 Temperature 97.3 F Pulse Rate 80 Respiratory 18 16 16 Rate Blood Pressure 115/53 (mmHg) O2 Sat by Pulse 98 Oximetry 12/02/16 12/02/16 12/02/16 22:50 22:57 23:30 Temperature 97.9 F 98.7 F Pulse Rate 80 80 Respiratory 16 18 16 Rate Blood Pressure 119/73 143/80 (mmHg) O2 Sat by Pulse 96 96 Oximetry 12/03/16 12/03/16 12/03/16 03:54 07:44 09:49 Temperature 99.2 F 97.9 F Pulse Rate 80 81 Respiratory 18 16 20 Rate Blood Pressure 146/76 126/51 (mmHg) O2 Sat by Pulse 97 96 Oximetry Oxygen Devices in Use Now: None Appearance: Older female patient, OOB to chair, in NAD Eyes: PERRLA Ears/Nose/Mouth/Throat: Mucous Membranes Moist Neck: NL Appearance and Movements; NL JVP Respiratory: Symmetrical Chest Expansion and Respiratory Effort, Clear to Auscultation - diminished Cardiovascular: NL Sounds; No Murmurs; No JVD, RRR Abdominal: NL Sounds; No Tenderness; No Distention Extremities: - - right hip dressing c/d/i, brisk cap refill, good distal movement/sensation Neurological: Alert and Oriented x 3 Lines/Tubes/Other Access: Clean, Dry and Intact Peripheral IV Nutrition: Taking PO's Result Diagrams: 12/03/16 06:32 12/02/16 05:59 Additional Lab and Data: Lab Results 11/29/16 11/29/16 11/29/16 Range/Units 00:50 00:50 00:50 WBC 17.8 H (3.5-10.8) 10^3/ul RBC 4.06 (4.0-5.4) 10^6/ul Hgb 11.6 L (12.0-16.0) g/dl Hct 36 (35-47) % MCV 89 (80-97) fL MCH 29 (27-31) pg MCHC 32 (31-36) g/dl RDW 16 H (10.5-15) % Plt Count 218 (150-450) 10^3/ul MPV 9 (7.4-10.4) um3 Neut % (Auto) 80.0 (38-83) % Lymph % (Auto) 12.1 L (25-47) % [place] % (Auto) 7.4 (1-9) % Eos % (Auto) 0.1 (0-6) % Baso % (Auto) 0.4 (0-2) % Absolute Neuts (auto) 14.2 H (1.5-7.7) 10^3/ul Absolute Lymphs (auto) 2.2 (1.0-4.8) 10^3/ul Absolute Monos (auto) 1.3 H (0-0.8) 10^3/ul Absolute Eos (auto) 0 (0-0.6) 10^3/ul Absolute Basos (auto) 0.1 (0-0.2) 10^3/ul Absolute Nucleated RBC 0 10^3/ul Nucleated RBC % 0 INR (Anticoag Therapy) 2.65 H (0.89-1.11) APTT 30.3 (26.0-36.3) seconds Sodium 133 (133-145) mmol/L Potassium 4.8 (3.5-5.0) mmol/L Chloride 99 L (101-111) mmol/L Carbon Dioxide 25 (22-32) mmol/L Anion Gap 9 (2-11) mmol/L BUN 32 H (6-24) mg/dL Creatinine 1.33 H (0.51-0.95) mg/dL Est GFR ( Amer) 48.6 (>60) Est GFR (Non-Af Amer) 37.8 (>60) BUN/Creatinine Ratio 24.1 H (8-20) Glucose 138 H (70-100) mg/dL Lactic Acid (0.5-2.0) mmol/L Calcium 9.1 (8.6-10.3) mg/dL Magnesium 1.9 (1.9-2.7) mg/dL Total Bilirubin 0.60 (0.2-1.0) mg/dL AST 24 (13-39) U/L ALT 16 (7-52) U/L Alkaline Phosphatase 48 (34-104) U/L Total Creatine Kinase 354 H (10-223) U/L CK-MB (CK-2) 13.5 H (0.6-6.3) ng/mL Troponin I 0.04 H* (<0.04) ng/mL C-Reactive Protein < 1.00 (< 5.00) mg/L Total Protein 6.9 (6.4-8.9) g/dL Albumin 3.8 (3.2-5.2) g/dL Globulin 3.1 (2-4) g/dL Albumin/Globulin Ratio 1.2 (1-3) Lipase 28 (11.0-82.0) U/L TSH 0.22 L (0.34-5.60) mcIU/mL 11/29/16 Range/Units 00:50 WBC (3.5-10.8) 10^3/ul RBC (4.0-5.4) 10^6/ul Hgb (12.0-16.0) g/dl Hct (35-47) % MCV (80-97) fL MCH (27-31) pg MCHC (31-36) g/dl RDW (10.5-15) % Plt Count (150-450) 10^3/ul MPV (7.4-10.4) um3 Neut % (Auto) (38-83) % Lymph % (Auto) (25-47) % [place] % (Auto) (1-9) % Eos % (Auto) (0-6) % Baso % (Auto) (0-2) % Absolute Neuts (auto) (1.5-7.7) 10^3/ul Absolute Lymphs (auto) (1.0-4.8) 10^3/ul Absolute Monos (auto) (0-0.8) 10^3/ul Absolute Eos (auto) (0-0.6) 10^3/ul Absolute Basos (auto) (0-0.2) 10^3/ul Absolute Nucleated RBC 10^3/ul Nucleated RBC % INR (Anticoag Therapy) (0.89-1.11) APTT (26.0-36.3) seconds Sodium (133-145) mmol/L Potassium (3.5-5.0) mmol/L Chloride (101-111) mmol/L Carbon Dioxide (22-32) mmol/L Anion Gap (2-11) mmol/L BUN (6-24) mg/dL Creatinine (0.51-0.95) mg/dL Est GFR ( Amer) (>60) Est GFR (Non-Af Amer) (>60) BUN/Creatinine Ratio (8-20) Glucose (70-100) mg/dL Lactic Acid 2.7 H* (0.5-2.0) mmol/L Calcium (8.6-10.3) mg/dL Magnesium (1.9-2.7) mg/dL Total Bilirubin (0.2-1.0) mg/dL AST (13-39) U/L ALT (7-52) U/L Alkaline Phosphatase (34-104) U/L Total Creatine Kinase (10-223) U/L CK-MB (CK-2) (0.6-6.3) ng/mL Troponin I (<0.04) ng/mL C-Reactive Protein (< 5.00) mg/L Total Protein (6.4-8.9) g/dL Albumin (3.2-5.2) g/dL Globulin (2-4) g/dL Albumin/Globulin Ratio (1-3) Lipase (11.0-82.0) U/L TSH (0.34-5.60) mcIU/mL Assess/Plan/Problems-Billing Assessment: Ms. Pompa is an 86 yo female with a PMH of paroxysmal afib, dual chamber pacemaker placement, cardiomyopathy EF 45%, systolic and diastolic heart failure , BALJIT, hypothyroidism, HTN, HLD, bullous pemphigoid, and colon cancer who was admitted 11/29/16 for right hip fracture sustained during mechanical fall. - Patient Problems (1) Closed right hip fracture Code(s): S72.001A - FRACTURE OF UNSP PART OF NECK OF RIGHT FEMUR, INIT Comment : Management per ortho, POD#2 Transfuse 2 units PRBC for acute blood loss anemia on 12/02 Pain management PT/OT consults, PMRU referral D/c bucky today (2) Acute blood loss as cause of postoperative anemia Code(s): D62 - ACUTE POSTHEMORRHAGIC ANEMIA Comment: S/p 2 units for H/H of 7.2/, now 9.4/ (3) Paroxysmal atrial fibrillation Code(s): I48.0 - PAROXYSMAL ATRIAL FIBRILLATION Comment: Stable, not currently in a fib. Continue Tikosyn Warfarin with lovenox bridge (4) Cardiomyopathy Code(s): I42.9 - CARDIOMYOPATHY, UNSPECIFIED Comment: Most recently documented EF is 45% (5) Systolic and diastolic CHF, chronic Code(s): I50.42 - CHRONIC COMBINED SYSTOLIC AND DIASTOLIC HRT FAIL Comment: Chronic intermittent, does not appear to be in acute exacerbation Continue torsemide, spironolactone (6) BALJIT (obstructive sleep apnea) Code(s): G47.33 - OBSTRUCTIVE SLEEP APNEA (ADULT) (PEDIATRIC) Comment: Does not tolerate CPAP (7) Hypothyroidism Code(s): E03.9 - HYPOTHYROIDISM, UNSPECIFIED Comment: Continue levothyroxine (8) HTN (hypertension) Code(s): I10 - ESSENTIAL (PRIMARY) HYPERTENSION Comment: Controlled. Continue home medications. (9) Dyslipidemia Code(s): E78.5 - HYPERLIPIDEMIA, UNSPECIFIED Comment: Continue statin. (10) DVT prophylaxis Comment: Warfarin with lovenox bridge Status and Disposition: Inpatient admission. Anticipate LOS >2 days. Discharge planning in progress.
[2016-12-03] MEDS: DORZOLAMIDE 2% LEFT EYE SCH ×2 (09:54→22:05)
[2016-12-03] MEDS: COMBIGAN LEFT EYE SCH ×2 (09:54→22:16)
[2016-12-03] MEDS: OPTH LEFT EYE SCH ×2 (09:54→22:05)
[2016-12-03] MEDS: Enoxaparin(*) 100 MG/ML SYR SUBCUT SCH ×2 (09:56→21:48)
[2016-12-03] MEDS ORDERED: Polyethylene Glycol 3350* 17 GM PACKET ONE (10:01)
[2016-12-03] MEDS: Polyethylene Glycol 3350* 17 GM PACKET PO SCH (10:03)
[2016-12-03] MEDS: Warfarin TAB(*) 5 MG PO SCH (17:15)
[2016-12-03] MEDS: BIMATOPROST 0.01% LEFT EYE SCH (21:52)
[2016-12-04] MEDS: Levothyroxine TAB* 125 MCG TAB PO SCH (06:01)
[2016-12-04] MEDS: oxyCODONE/Acetamin 5/325 MG* TAB PO PRN ×2 (06:01→10:05)
[2016-12-04 07:09] LABS: Hematocrit 31 % (35-47); Hemoglobin 10.2 g/dl (12.0-16.0)
[2016-12-04] MEDS: DORZOLAMIDE 2% LEFT EYE SCH ×2 (07:46→21:43)
[2016-12-04] MEDS: OPTH LEFT EYE SCH ×2 (07:46→21:43)
[2016-12-04] MEDS: COMBIGAN LEFT EYE SCH ×2 (07:49→21:43)
[2016-12-04] MEDS: Polyethylene Glycol 3350* 17 GM PACKET PO SCH (07:59)
[2016-12-04] MEDS: Docusate CAP* 100 MG PO SCH ×2 (08:01→21:42)
[2016-12-04] MEDS: Dofetilide CAP* 250 MCG PO SCH ×2 (08:01→21:42)
[2016-12-04] MEDS: Enoxaparin(*) 100 MG/ML SYR SUBCUT SCH ×2 (08:02→21:44)
--- NOTE | 2016-12-04 08:47 | PN ---
Progress Note - Progress Note SOAP: Subjective: [Pt reports doing well. Minimal c/o pain. Has been OOB with PT/OT. Had a BM. Denies CP, SOB, Calf pain.] Objective: [A and O x 3, NAD. Getting ready to be moved to chair for breakfast. R hip dressing with minimal serous drainage. Intact. Distal NV status and gross motor intact. mild non-pitting edema b/l LEs. Calves soft, NT Vital Signs: Temp Pulse Resp BP Pulse Ox 97.7 F 76 16 120/68 97 12/04/16 07:22 12/04/16 07:22 12/04/16 08:00 12/04/16 07:22 12/04/16 07:22 Laboratory Results - last 24 hr 12/04/16 12/04/16 06:35 06:35 Hgb 10.2 L Hct 31 L INR (Anticoag Therapy) 1.45 H ] Assessment: [86 you female s/p OROF intramedullary nailing R femur POD # 3] Plan: [Con't PT/OT DVT prophylaxis Lovenox and Coumadin Likely placement SNF at D/C]
--- NOTE | 2016-12-04 15:15 | PN ---
Subjective Date of Service: 12/04/16 Interval History: Pt feels well. Has occasional wheeze over the ascultation of the neck-pt stated it's chronic. Family History: Unchanged from Admission Social History: Unchanged from Admission Past Medical History: Unchanged from Admission Objective Active Medications: Atorvastatin Calcium (Lipitor*) 20 mg PO DAILY [facility] PRN Reason: Protocol Last Admin: 12/03/16 09:48 Dose: 20 mg Bimatoprost (Lumigan 0.01% Ophth (Nf)) 1 drop LEFT EYE BEDTIME [facility] Last Admin: 12/03/16 21:52 Dose: 1 drop Brimonidine/Timolol (Combigan Ophth (Nf)) 1 drop LEFT EYE BID [facility] Last Admin: 12/04/16 07:49 Dose: 1 drop Docusate Sodium (Colace Cap*) 100 mg PO BID [facility] Last Admin: 12/04/16 08:01 Dose: 100 mg Dofetilide (Tikosyn Cap*) 250 mcg PO BID [facility] Last Admin: 12/04/16 08:01 Dose: 250 mcg Dorzolamide HCl (Trusopt 2% Opth (Nf)) 1 drop LEFT EYE BID [facility] PRN Reason: Protocol Last Admin: 12/04/16 07:46 Dose: 1 drop Enoxaparin Sodium (Lovenox(*)) 90 mg SUBCUT Q12H [facility] Last Admin: 12/04/16 08:02 Dose: 90 mg Lactulose (Lactulose*) 30 ml PO TID PRN PRN Reason: CONSTIPATION Last Admin: 12/03/16 11:59 Dose: 30 ml Levothyroxine Sodium (Synthroid Tab*) 125 mcg PO 0600 [facility] Last Admin: 12/04/16 06:01 Dose: 125 mcg Morphine Sulfate (Morphine Inj (Syringe)*) 2 mg IV Q2H PRN PRN Reason: PAIN Last Admin: 12/01/16 05:15 Dose: 2 mg Oxycodone/Acetaminophen (Percocet 5/325 Tab*) 1 tab PO Q4H PRN PRN Reason: PAIN Last Admin: 12/04/16 10:05 Dose: 1 tab Oxycodone/Acetaminophen (Percocet 5/325 Tab*) 2 tab PO Q4H PRN PRN Reason: PAIN - MODERATE Last Admin: 12/02/16 06:04 Dose: 2 tab Polyethylene Glycol/Electrolytes (Miralax*) 17 gm PO DAILY [facility] Last Admin: 12/04/16 07:59 Dose: Not Given Senna (Senokot Tab*) 2 tab PO BEDTIME PRN PRN Reason: CONSTIPATION Last Admin: 12/02/16 22:21 Dose: 2 tab Spironolactone (Aldactone Tab*) 25 mg PO MOWEFR [facility] Last Admin: 12/03/16 09:48 Dose: 25 mg Torsemide (Demadex*) 20 mg PO MoWeFr@0900 [facility] Last Admin: 12/03/16 09:48 Dose: 20 mg Warfarin Sodium (Coumadin Tab(*)) 5 mg PO SuMoTuWeFrSa@1700 [facility] Last Admin: 12/03/16 17:15 Dose: 5 mg Warfarin Sodium (Coumadin Tab(*)) 2.5 mg PO Th@1700 [facility] Last Admin: 12/02/16 17:39 Dose: 2.5 mg Vital Signs 12/03/16 12/03/16 12/03/16 15:41 17:16 19:16 Temperature 97.5 F Pulse Rate 80 Respiratory 22 21 18 Rate Blood Pressure 125/70 (mmHg) O2 Sat by Pulse 98 Oximetry 12/03/16 12/03/16 12/03/16 19:21 22:15 22:20 Temperature 97.9 F Pulse Rate 80 Respiratory 16 18 18 Rate Blood Pressure 119/63 (mmHg) O2 Sat by Pulse 98 Oximetry 12/04/16 12/04/16 12/04/16 00:20 00:29 04:46 Temperature 98.4 F 97.9 F Pulse Rate 80 70 Respiratory 16 20 20 Rate Blood Pressure 117/57 126/57 (mmHg) O2 Sat by Pulse 96 98 Oximetry 12/04/16 12/04/16 12/04/16 06:01 07:22 08:00 Temperature 97.7 F Pulse Rate 76 Respiratory 16 17 16 Rate Blood Pressure 120/68 (mmHg) O2 Sat by Pulse 97 Oximetry 12/04/16 12/04/16 10:05 11:20 Temperature 98.0 F Pulse Rate 71 Respiratory 2 17 Rate Blood Pressure 122/73 (mmHg) O2 Sat by Pulse 99 Oximetry Oxygen Devices in Use Now: None Appearance: 86 yo F in nAD, aAOx3 Eyes: No Scleral Icterus, PERRLA Ears/Nose/Mouth/Throat: NL Teeth, Lips, Gums, Mucous Membranes Moist Neck: NL Appearance and Movements; NL JVP, Trachea Midline Respiratory: Symmetrical Chest Expansion and Respiratory Effort, Clear to Auscultation Cardiovascular: NL Sounds; No Murmurs; No JVD, RRR Abdominal: NL Sounds; No Tenderness; No Distention, No Hepatosplenomegaly Lymphatic: No Cervical Adenopathy Extremities: No Clubbing, Cyanosis, - - trace b/l pedal edema Skin: No Nodules or Sclerosis, - - R hip incision with well approximated edges, stapled, no infection or dehiscence noted Neurological: Alert and Oriented x 3, NL Muscle Strength and Tone Result Diagrams: 12/04/16 06:35 12/02/16 05:59 Additional Lab and Data: Lab Results 11/29/16 11/29/16 11/29/16 Range/Units 00:50 00:50 00:50 WBC 17.8 H (3.5-10.8) 10^3/ul RBC 4.06 (4.0-5.4) 10^6/ul Hgb 11.6 L (12.0-16.0) g/dl Hct 36 (35-47) % MCV 89 (80-97) fL MCH 29 (27-31) pg MCHC 32 (31-36) g/dl RDW 16 H (10.5-15) % Plt Count 218 (150-450) 10^3/ul MPV 9 (7.4-10.4) um3 Neut % (Auto) 80.0 (38-83) % Lymph % (Auto) 12.1 L (25-47) % [place] % (Auto) 7.4 (1-9) % Eos % (Auto) 0.1 (0-6) % Baso % (Auto) 0.4 (0-2) % Absolute Neuts (auto) 14.2 H (1.5-7.7) 10^3/ul Absolute Lymphs (auto) 2.2 (1.0-4.8) 10^3/ul Absolute Monos (auto) 1.3 H (0-0.8) 10^3/ul Absolute Eos (auto) 0 (0-0.6) 10^3/ul Absolute Basos (auto) 0.1 (0-0.2) 10^3/ul Absolute Nucleated RBC 0 10^3/ul Nucleated RBC % 0 INR (Anticoag Therapy) 2.65 H (0.89-1.11) APTT 30.3 (26.0-36.3) seconds Sodium 133 (133-145) mmol/L Potassium 4.8 (3.5-5.0) mmol/L Chloride 99 L (101-111) mmol/L Carbon Dioxide 25 (22-32) mmol/L Anion Gap 9 (2-11) mmol/L BUN 32 H (6-24) mg/dL Creatinine 1.33 H (0.51-0.95) mg/dL Est GFR ( Amer) 48.6 (>60) Est GFR (Non-Af Amer) 37.8 (>60) BUN/Creatinine Ratio 24.1 H (8-20) Glucose 138 H (70-100) mg/dL Lactic Acid (0.5-2.0) mmol/L Calcium 9.1 (8.6-10.3) mg/dL Magnesium 1.9 (1.9-2.7) mg/dL Total Bilirubin 0.60 (0.2-1.0) mg/dL AST 24 (13-39) U/L ALT 16 (7-52) U/L Alkaline Phosphatase 48 (34-104) U/L Total Creatine Kinase 354 H (10-223) U/L CK-MB (CK-2) 13.5 H (0.6-6.3) ng/mL Troponin I 0.04 H* (<0.04) ng/mL C-Reactive Protein < 1.00 (< 5.00) mg/L Total Protein 6.9 (6.4-8.9) g/dL Albumin 3.8 (3.2-5.2) g/dL Globulin 3.1 (2-4) g/dL Albumin/Globulin Ratio 1.2 (1-3) Lipase 28 (11.0-82.0) U/L TSH 0.22 L (0.34-5.60) mcIU/mL 11/29/16 Range/Units 00:50 WBC (3.5-10.8) 10^3/ul RBC (4.0-5.4) 10^6/ul Hgb (12.0-16.0) g/dl Hct (35-47) % MCV (80-97) fL MCH (27-31) pg MCHC (31-36) g/dl RDW (10.5-15) % Plt Count (150-450) 10^3/ul MPV (7.4-10.4) um3 Neut % (Auto) (38-83) % Lymph % (Auto) (25-47) % [place] % (Auto) (1-9) % Eos % (Auto) (0-6) % Baso % (Auto) (0-2) % Absolute Neuts (auto) (1.5-7.7) 10^3/ul Absolute Lymphs (auto) (1.0-4.8) 10^3/ul Absolute Monos (auto) (0-0.8) 10^3/ul Absolute Eos (auto) (0-0.6) 10^3/ul Absolute Basos (auto) (0-0.2) 10^3/ul Absolute Nucleated RBC 10^3/ul Nucleated RBC % INR (Anticoag Therapy) (0.89-1.11) APTT (26.0-36.3) seconds Sodium (133-145) mmol/L Potassium (3.5-5.0) mmol/L Chloride (101-111) mmol/L Carbon Dioxide (22-32) mmol/L Anion Gap (2-11) mmol/L BUN (6-24) mg/dL Creatinine (0.51-0.95) mg/dL Est GFR ( Amer) (>60) Est GFR (Non-Af Amer) (>60) BUN/Creatinine Ratio (8-20) Glucose (70-100) mg/dL Lactic Acid 2.7 H* (0.5-2.0) mmol/L Calcium (8.6-10.3) mg/dL Magnesium (1.9-2.7) mg/dL Total Bilirubin (0.2-1.0) mg/dL AST (13-39) U/L ALT (7-52) U/L Alkaline Phosphatase (34-104) U/L Total Creatine Kinase (10-223) U/L CK-MB (CK-2) (0.6-6.3) ng/mL Troponin I (<0.04) ng/mL C-Reactive Protein (< 5.00) mg/L Total Protein (6.4-8.9) g/dL Albumin (3.2-5.2) g/dL Globulin (2-4) g/dL Albumin/Globulin Ratio (1-3) Lipase (11.0-82.0) U/L TSH (0.34-5.60) mcIU/mL Assess/Plan/Problems-Billing Assessment: Ms. Pompa is an 86 yo female with a PMH of paroxysmal afib, dual chamber pacemaker placement, cardiomyopathy EF 45%, systolic and diastolic heart failure , BALJIT, hypothyroidism, HTN, HLD, bullous pemphigoid, and colon cancer who was admitted 11/29/16 for right hip fracture sustained during mechanical fall. - Patient Problems (1) Closed right hip fracture Comment: Management per ortho Transfused 2 units PRBC for acute blood loss anemia on 12/02 Pain management PT/OT consults, PMRU referral (2) Acute blood loss as cause of postoperative anemia Comment: S/p 2 units for H/H of 7.2/, now 10.2 (3) Paroxysmal atrial fibrillation Comment: currently in a regular rythm Continue Tikosyn Warfarin with lovenox bridge (4) Cardiomyopathy Comment: Most recently documented EF is 45% (5) Systolic and diastolic CHF, chronic Comment: Chronic intermittent, does not appear to be in acute exacerbation Continue torsemide, spironolactone (6) BALJIT (obstructive sleep apnea) Comment: Does not tolerate CPAP (7) HTN (hypertension) Comment: Controlled. Continue home medications. (8) Hypothyroidism Comment: Continue levothyroxine (9) Dyslipidemia Comment: Continue statin. (10) Troponin I above reference range Comment: max at 0.07 suspect demand ischemia, pt asymptomatic (11) DVT prophylaxis Comment: Warfarin with lovenox bridge Status and Disposition: Inpatient admission. Anticipate LOS >2 days. Discharge planning in progress.
[2016-12-04] MEDS: Atorvastatin* 20 MG TAB PO SCH (16:59)
[2016-12-04] MEDS: Warfarin TAB(*) 5 MG PO SCH (16:59)
[2016-12-04] MEDS: Acetaminophen TAB* 325 MG PO PRN (17:40)
[2016-12-04] MEDS: BIMATOPROST 0.01% LEFT EYE SCH (21:42)
[2016-12-05] MEDS: Acetaminophen TAB* 325 MG PO PRN ×3 (00:13→16:37)
[2016-12-05] MEDS: Levothyroxine TAB* 125 MCG TAB PO SCH (06:13)
[2016-12-05] MEDS: Docusate CAP* 100 MG PO SCH ×2 (08:41→21:31)
[2016-12-05] MEDS: COMBIGAN LEFT EYE SCH ×2 (08:41→21:31)
[2016-12-05] MEDS: OPTH LEFT EYE SCH ×2 (08:41→21:31)
[2016-12-05] MEDS: DORZOLAMIDE 2% LEFT EYE SCH ×2 (08:41→21:31)
[2016-12-05] MEDS: Polyethylene Glycol 3350* 17 GM PACKET PO SCH (08:41)
[2016-12-05] MEDS: Dofetilide CAP* 250 MCG PO SCH ×2 (08:41→21:32)
[2016-12-05] MEDS: Atorvastatin* 20 MG TAB PO SCH (08:41)
[2016-12-05] MEDS: Enoxaparin(*) 100 MG/ML SYR SUBCUT SCH ×2 (08:42→21:30)
--- NOTE | 2016-12-05 08:45 | PN ---
Progress Note - Progress Note SOAP: Subjective: [Pt doing well. Minimal complaints of pain. Denies CP, SOB, Calf pain.] Objective: [A and O x 3, NAD R hip dressing changed. Moderate amount of serous drainage on dressing. Scant active drainage. Mild ecchymosis. No erythema. Calf soft, NT. Distal gross motor and NV function intact. Vital Signs: Temp Pulse Resp BP Pulse Ox 97.9 F 75 18 123/62 98 12/05/16 07:28 12/05/16 07:28 12/05/16 07:28 12/05/16 07:28 12/05/16 07:28 Laboratory Results - last 24 hr 12/05/16 07:37 INR (Anticoag Therapy) 1.76 H ] Assessment: [86 you female s/p ORIF R hip POD #4] Plan: [Con't PT/OT - WBAT R LE DVT prophylaxis with Lovenox and Coumadin Likely SNF placement at D/C]
--- NOTE | 2016-12-05 09:06 | PN ---
Subjective Date of Service: 12/05/16 Interval History: Pt feels well. no new complaints Family History: Unchanged from Admission Social History: Unchanged from Admission Past Medical History: Unchanged from Admission Objective Active Medications: Acetaminophen (Tylenol Tab*) 650 mg PO Q6H PRN PRN Reason: PAIN Last Admin: 12/05/16 06:13 Dose: 650 mg Atorvastatin Calcium (Lipitor*) 20 mg PO DAILY [facility] PRN Reason: Protocol Last Admin: 12/05/16 08:41 Dose: 20 mg Bimatoprost (Lumigan 0.01% Ophth (Nf)) 1 drop LEFT EYE BEDTIME [facility] Last Admin: 12/04/16 21:42 Dose: 1 drop Brimonidine/Timolol (Combigan Ophth (Nf)) 1 drop LEFT EYE BID [facility] Last Admin: 12/05/16 08:41 Dose: 1 drop Docusate Sodium (Colace Cap*) 100 mg PO BID [facility] Last Admin: 12/05/16 08:41 Dose: 100 mg Dofetilide (Tikosyn Cap*) 250 mcg PO BID [facility] Last Admin: 12/05/16 08:41 Dose: 250 mcg Dorzolamide HCl (Trusopt 2% Opth (Nf)) 1 drop LEFT EYE BID [facility] PRN Reason: Protocol Last Admin: 12/05/16 08:41 Dose: 1 drop Enoxaparin Sodium (Lovenox(*)) 90 mg SUBCUT Q12H [facility] Last Admin: 12/05/16 08:42 Dose: 90 mg Lactulose (Lactulose*) 30 ml PO TID PRN PRN Reason: CONSTIPATION Last Admin: 12/03/16 11:59 Dose: 30 ml Levothyroxine Sodium (Synthroid Tab*) 125 mcg PO 0600 [facility] Last Admin: 12/05/16 06:13 Dose: 125 mcg Morphine Sulfate (Morphine Inj (Syringe)*) 2 mg IV Q2H PRN PRN Reason: PAIN Last Admin: 12/01/16 05:15 Dose: 2 mg Oxycodone/Acetaminophen (Percocet 5/325 Tab*) 1 tab PO Q4H PRN PRN Reason: PAIN Last Admin: 12/04/16 10:05 Dose: 1 tab Polyethylene Glycol/Electrolytes (Miralax*) 17 gm PO DAILY [facility] Last Admin: 12/05/16 08:41 Dose: Not Given Senna (Senokot Tab*) 2 tab PO BEDTIME PRN PRN Reason: CONSTIPATION Last Admin: 12/02/16 22:21 Dose: 2 tab Spironolactone (Aldactone Tab*) 25 mg PO MOWEFR [facility] Last Admin: 12/03/16 09:48 Dose: 25 mg Torsemide (Demadex*) 20 mg PO MoWeFr@0900 [facility] Last Admin: 12/03/16 09:48 Dose: 20 mg Warfarin Sodium (Coumadin Tab(*)) 5 mg PO SuMoTuWeFrSa@1700 [facility] Last Admin: 12/04/16 16:59 Dose: 5 mg Warfarin Sodium (Coumadin Tab(*)) 2.5 mg PO Th@1700 [facility] Last Admin: 12/02/16 17:39 Dose: 2.5 mg Vital Signs 12/04/16 12/04/16 12/04/16 10:05 11:20 16:59 Temperature 98.0 F 97.7 F Pulse Rate 71 72 Respiratory 2 17 20 Rate Blood Pressure 122/73 118/63 (mmHg) O2 Sat by Pulse 99 98 Oximetry 12/04/16 12/04/16 12/04/16 20:45 21:04 23:58 Temperature 97.9 F 97.6 F Pulse Rate 73 79 Respiratory 20 20 18 Rate Blood Pressure 150/75 115/40 (mmHg) O2 Sat by Pulse 99 98 Oximetry 12/05/16 12/05/16 04:13 07:28 Temperature 97.6 F 97.9 F Pulse Rate 69 75 Respiratory 20 18 Rate Blood Pressure 134/61 123/62 (mmHg) O2 Sat by Pulse 98 98 Oximetry Oxygen Devices in Use Now: None Appearance: 86 yo f in nAd, aAOx3 Eyes: No Scleral Icterus, PERRLA Ears/Nose/Mouth/Throat: NL Teeth, Lips, Gums, Mucous Membranes Moist Neck: NL Appearance and Movements; NL JVP, Trachea Midline Respiratory: Symmetrical Chest Expansion and Respiratory Effort, - - scant bibasiliar crackles Cardiovascular: NL Sounds; No Murmurs; No JVD, RRR Abdominal: NL Sounds; No Tenderness; No Distention, No Hepatosplenomegaly Lymphatic: No Cervical Adenopathy Extremities: No Clubbing, Cyanosis, - - trace b/l ankle edema Skin: No Nodules or Sclerosis, - - R hip dressing with scant serous drainage, wound stapled, no dehiscence noted Neurological: Alert and Oriented x 3, NL Muscle Strength and Tone Result Diagrams: 12/04/16 06:35 12/02/16 05:59 Additional Lab and Data: Lab Results 11/29/16 11/29/16 11/29/16 Range/Units 00:50 00:50 00:50 WBC 17.8 H (3.5-10.8) 10^3/ul RBC 4.06 (4.0-5.4) 10^6/ul Hgb 11.6 L (12.0-16.0) g/dl Hct 36 (35-47) % MCV 89 (80-97) fL MCH 29 (27-31) pg MCHC 32 (31-36) g/dl RDW 16 H (10.5-15) % Plt Count 218 (150-450) 10^3/ul MPV 9 (7.4-10.4) um3 Neut % (Auto) 80.0 (38-83) % Lymph % (Auto) 12.1 L (25-47) % [place] % (Auto) 7.4 (1-9) % Eos % (Auto) 0.1 (0-6) % Baso % (Auto) 0.4 (0-2) % Absolute Neuts (auto) 14.2 H (1.5-7.7) 10^3/ul Absolute Lymphs (auto) 2.2 (1.0-4.8) 10^3/ul Absolute Monos (auto) 1.3 H (0-0.8) 10^3/ul Absolute Eos (auto) 0 (0-0.6) 10^3/ul Absolute Basos (auto) 0.1 (0-0.2) 10^3/ul Absolute Nucleated RBC 0 10^3/ul Nucleated RBC % 0 INR (Anticoag Therapy) 2.65 H (0.89-1.11) APTT 30.3 (26.0-36.3) seconds Sodium 133 (133-145) mmol/L Potassium 4.8 (3.5-5.0) mmol/L Chloride 99 L (101-111) mmol/L Carbon Dioxide 25 (22-32) mmol/L Anion Gap 9 (2-11) mmol/L BUN 32 H (6-24) mg/dL Creatinine 1.33 H (0.51-0.95) mg/dL Est GFR ( Amer) 48.6 (>60) Est GFR (Non-Af Amer) 37.8 (>60) BUN/Creatinine Ratio 24.1 H (8-20) Glucose 138 H (70-100) mg/dL Lactic Acid (0.5-2.0) mmol/L Calcium 9.1 (8.6-10.3) mg/dL Magnesium 1.9 (1.9-2.7) mg/dL Total Bilirubin 0.60 (0.2-1.0) mg/dL AST 24 (13-39) U/L ALT 16 (7-52) U/L Alkaline Phosphatase 48 (34-104) U/L Total Creatine Kinase 354 H (10-223) U/L CK-MB (CK-2) 13.5 H (0.6-6.3) ng/mL Troponin I 0.04 H* (<0.04) ng/mL C-Reactive Protein < 1.00 (< 5.00) mg/L Total Protein 6.9 (6.4-8.9) g/dL Albumin 3.8 (3.2-5.2) g/dL Globulin 3.1 (2-4) g/dL Albumin/Globulin Ratio 1.2 (1-3) Lipase 28 (11.0-82.0) U/L TSH 0.22 L (0.34-5.60) mcIU/mL 11/29/16 Range/Units 00:50 WBC (3.5-10.8) 10^3/ul RBC (4.0-5.4) 10^6/ul Hgb (12.0-16.0) g/dl Hct (35-47) % MCV (80-97) fL MCH (27-31) pg MCHC (31-36) g/dl RDW (10.5-15) % Plt Count (150-450) 10^3/ul MPV (7.4-10.4) um3 Neut % (Auto) (38-83) % Lymph % (Auto) (25-47) % [place] % (Auto) (1-9) % Eos % (Auto) (0-6) % Baso % (Auto) (0-2) % Absolute Neuts (auto) (1.5-7.7) 10^3/ul Absolute Lymphs (auto) (1.0-4.8) 10^3/ul Absolute Monos (auto) (0-0.8) 10^3/ul Absolute Eos (auto) (0-0.6) 10^3/ul Absolute Basos (auto) (0-0.2) 10^3/ul Absolute Nucleated RBC 10^3/ul Nucleated RBC % INR (Anticoag Therapy) (0.89-1.11) APTT (26.0-36.3) seconds Sodium (133-145) mmol/L Potassium (3.5-5.0) mmol/L Chloride (101-111) mmol/L Carbon Dioxide (22-32) mmol/L Anion Gap (2-11) mmol/L BUN (6-24) mg/dL Creatinine (0.51-0.95) mg/dL Est GFR ( Amer) (>60) Est GFR (Non-Af Amer) (>60) BUN/Creatinine Ratio (8-20) Glucose (70-100) mg/dL Lactic Acid 2.7 H* (0.5-2.0) mmol/L Calcium (8.6-10.3) mg/dL Magnesium (1.9-2.7) mg/dL Total Bilirubin (0.2-1.0) mg/dL AST (13-39) U/L ALT (7-52) U/L Alkaline Phosphatase (34-104) U/L Total Creatine Kinase (10-223) U/L CK-MB (CK-2) (0.6-6.3) ng/mL Troponin I (<0.04) ng/mL C-Reactive Protein (< 5.00) mg/L Total Protein (6.4-8.9) g/dL Albumin (3.2-5.2) g/dL Globulin (2-4) g/dL Albumin/Globulin Ratio (1-3) Lipase (11.0-82.0) U/L TSH (0.34-5.60) mcIU/mL Assess/Plan/Problems-Billing Assessment: Ms. Pompa is an 86 yo female with a PMH of paroxysmal afib, dual chamber pacemaker placement, cardiomyopathy EF 45%, systolic and diastolic heart failure , BALJIT, hypothyroidism, HTN, HLD, bullous pemphigoid, and colon cancer who was admitted 11/29/16 for right hip fracture sustained during mechanical fall. - Patient Problems (1) Closed right hip fracture Comment: Management per ortho Transfused 2 units PRBC for acute blood loss anemia on 12/02 Pain management PT/OT consults, PMRU referral (2) Acute blood loss as cause of postoperative anemia Comment: S/p 2 units for H/H of 7.2/, now 10.2 (3) Paroxysmal atrial fibrillation Comment: currently in a regular rythm Continue Tikosyn Warfarin with lovenox bridge (4) Cardiomyopathy Comment: Most recently documented EF is 45% (5) Systolic and diastolic CHF, chronic Comment: Chronic intermittent, does not appear to be in acute exacerbation Continue torsemide, spironolactone (6) BALJIT (obstructive sleep apnea) Comment: Does not tolerate CPAP (7) HTN (hypertension) Comment: Controlled. Continue home medications. (8) Hypothyroidism Comment: Continue levothyroxine (9) Dyslipidemia Comment: Continue statin. (10) Troponin I above reference range Comment: max at 0.07 suspect demand ischemia, pt asymptomatic (11) DVT prophylaxis Comment: Warfarin with lovenox bridge Status and Disposition: Inpatient admission. medically ready for discharge
[2016-12-05] MEDS ORDERED: Furosemide IV* 10 MG/ML 2 ML VIAL (20 MG) IV ONE (11:56)
[2016-12-05] MEDS ORDERED: Furosemide IV* 10 MG/ML 2 ML VIAL (20 MG) ONE (12:01)
--- NOTE | 2016-12-05 12:38 | RAD ---
HISTORY: Shortness of breath COMPARISONS: November 29, 2016 VIEWS:1: Single frontal portable view of the chest at 12:10 PM FINDINGS: LINES AND TUBES: A left-sided AICD pacemaker is noted CARDIOMEDIASTINAL SILHOUETTE: The cardiomediastinal silhouette is normal for portable technique. PLEURA: The costophrenic angles are sharp. No pleural abnormalities are noted. LUNG PARENCHYMA: There is prominence of the central pulmonary vasculature. ABDOMEN: The upper abdomen is clear. There is no subphrenic gas. BONES AND SOFT TISSUES: The patient is status post bilateral shoulder arthroplasty IMPRESSION: PROMINENCE OF THE CENTRAL PULMONARY VASCULATURE.
[2016-12-05] MEDS: Warfarin TAB(*) 5 MG PO SCH (16:37)
--- NOTE | 2016-12-05 19:58 | PN ---
Progress Note - Progress Note Note: Pt seen and examined around 10 am. Feeling well. Denies fevers, SOB. Sitting in chair. Eager to go home. Temp Pulse Resp BP Pulse Ox 97.9 F 78 24 131/52 100 12/05/16 15:53 12/05/16 15:53 12/05/16 15:53 12/05/16 15:53 12/05/16 15:[address]. Calf soft, nontender. Some difficulty flex/ext knee. Able to dorsiflex/plantarflex foot. SILT, brisk cap refill. + edema compared to contralateral side Laboratory Results - last 24 hr 12/05/16 07:37 INR (Anticoag Therapy) 1.76 H A/P POD#3 from IMN right hip. doing well. PWB for 6 weeks. PT/OT abla- last HCT stable. cont lovenox/coumadin until therapeutic dispo when able. will sign off for now. please have patient see me in 10-14 days for follow up [id number]
[2016-12-05] MEDS: BIMATOPROST 0.01% LEFT EYE SCH (21:31)
[2016-12-06] MEDS: Acetaminophen TAB* 325 MG PO PRN ×3 (04:02→22:18)
[2016-12-06] MEDS: Levothyroxine TAB* 125 MCG TAB PO SCH (05:50)
[2016-12-06] MEDS: Polyethylene Glycol 3350* 17 GM PACKET PO SCH (08:12)
[2016-12-06] MEDS: Enoxaparin(*) 100 MG/ML SYR SUBCUT SCH ×2 (08:16→22:17)
[2016-12-06] MEDS: Torsemide TAB* 20 MG PO SCH (08:17)
[2016-12-06] MEDS: Atorvastatin* 20 MG TAB PO SCH (08:17)
[2016-12-06] MEDS: Dofetilide CAP* 250 MCG PO SCH ×2 (08:17→22:18)
[2016-12-06] MEDS: Docusate CAP* 100 MG PO SCH ×2 (08:17→22:18)
[2016-12-06] MEDS: OPTH LEFT EYE SCH ×2 (08:18→22:18)
[2016-12-06] MEDS: DORZOLAMIDE 2% LEFT EYE SCH ×2 (08:18→22:18)
[2016-12-06] MEDS: COMBIGAN LEFT EYE SCH ×2 (08:19→22:19)
[2016-12-06] MEDS: Spironolactone TAB* 25 MG PO SCH (08:21)
--- NOTE | 2016-12-06 11:17 | PN ---
Subjective Date of Service: 12/06/16 Interval History: Pt feels well. Received a dose of Lasix yesterday for concerns of tachypnea, but pt states that she always "breathes like this". CXR unremarkable Family History: Unchanged from Admission Social History: Unchanged from Admission Past Medical History: Unchanged from Admission Objective Active Medications: Acetaminophen (Tylenol Tab*) 650 mg PO Q6H PRN PRN Reason: PAIN Last Admin: 12/06/16 04:02 Dose: 650 mg Atorvastatin Calcium (Lipitor*) 20 mg PO DAILY [facility] PRN Reason: Protocol Last Admin: 12/06/16 08:17 Dose: 20 mg Bimatoprost (Lumigan 0.01% Ophth (Nf)) 1 drop LEFT EYE BEDTIME [facility] Last Admin: 12/05/16 21:31 Dose: 1 drop Brimonidine/Timolol (Combigan Ophth (Nf)) 1 drop LEFT EYE BID [facility] Last Admin: 12/06/16 08:19 Dose: 1 drop Docusate Sodium (Colace Cap*) 100 mg PO BID [facility] Last Admin: 12/06/16 08:17 Dose: 100 mg Dofetilide (Tikosyn Cap*) 250 mcg PO BID [facility] Last Admin: 12/06/16 08:17 Dose: 250 mcg Dorzolamide HCl (Trusopt 2% Opth (Nf)) 1 drop LEFT EYE BID [facility] PRN Reason: Protocol Last Admin: 12/06/16 08:18 Dose: 1 drop Enoxaparin Sodium (Lovenox(*)) 90 mg SUBCUT Q12H [facility] Last Admin: 12/06/16 08:16 Dose: 90 mg Heparin Sodium (Porcine) (Heparin Flush Picc/Ml/Cvc(*)) 1 - 3 ml FLUSH 0600, 1800 [facility] PRN Reason: Protocol Last Admin: 12/06/16 05:50 Dose: 1 ml Lactulose (Lactulose*) 30 ml PO TID PRN PRN Reason: CONSTIPATION Last Admin: 12/03/16 11:59 Dose: 30 ml Levothyroxine Sodium (Synthroid Tab*) 125 mcg PO 0600 [facility] Last Admin: 12/06/16 05:50 Dose: 125 mcg Oxycodone/Acetaminophen (Percocet 5/325 Tab*) 1 tab PO Q4H PRN PRN Reason: PAIN Last Admin: 12/04/16 10:05 Dose: 1 tab Polyethylene Glycol/Electrolytes (Miralax*) 17 gm PO DAILY [facility] Last Admin: 12/06/16 08:12 Dose: Not Given Senna (Senokot Tab*) 2 tab PO BEDTIME PRN PRN Reason: CONSTIPATION Last Admin: 12/02/16 22:21 Dose: 2 tab Spironolactone (Aldactone Tab*) 25 mg PO MOWEFR [facility] Last Admin: 12/06/16 08:21 Dose: 25 mg Torsemide (Demadex*) 20 mg PO MoWeFr@0900 [facility] Last Admin: 12/06/16 08:17 Dose: 20 mg Warfarin Sodium (Coumadin Tab(*)) 5 mg PO SuMoTuWeFrSa@1700 [facility] Last Admin: 12/05/16 16:37 Dose: 5 mg Warfarin Sodium (Coumadin Tab(*)) 2.5 mg PO Th@1700 [facility] Last Admin: 12/02/16 17:39 Dose: 2.5 mg Vital Signs 12/05/16 12/05/16 12/05/16 11:33 15:53 19:44 Temperature 97.7 F 97.9 F Pulse Rate 76 78 Respiratory 28 24 20 Rate Blood Pressure 128/47 131/52 (mmHg) O2 Sat by Pulse 99 100 Oximetry 12/05/16 12/05/16 12/06/16 19:51 23:55 03:47 Temperature 97.3 F 97.9 F 97.8 F Pulse Rate 71 82 81 Respiratory 26 20 20 Rate Blood Pressure 141/60 126/61 158/83 (mmHg) O2 Sat by Pulse 96 98 98 Oximetry 12/06/16 12/06/16 07:46 08:00 Temperature 97.5 F Pulse Rate 80 Respiratory 20 20 Rate Blood Pressure 152/70 (mmHg) O2 Sat by Pulse 98 Oximetry Oxygen Devices in Use Now: None Appearance: 86 yo F in nAd, aAOx3 Eyes: No Scleral Icterus, PERRLA Ears/Nose/Mouth/Throat: NL Teeth, Lips, Gums, Mucous Membranes Moist Neck: NL Appearance and Movements; NL JVP, Trachea Midline Respiratory: Symmetrical Chest Expansion and Respiratory Effort, - - faint bibasiliar crackles Cardiovascular: NL Sounds; No Murmurs; No JVD, RRR Abdominal: NL Sounds; No Tenderness; No Distention, No Hepatosplenomegaly Lymphatic: No Cervical Adenopathy Extremities: No Clubbing, Cyanosis, - - b/l ankle edema-trace Skin: No Nodules or Sclerosis, - - R hip incision stapled, no dehiscence, scant serosanguineus drainage Neurological: Alert and Oriented x 3, NL Muscle Strength and Tone Result Diagrams: 12/04/16 06:35 12/02/16 05:59 Additional Lab and Data: Lab Results 11/29/16 11/29/16 11/29/16 Range/Units 00:50 00:50 00:50 WBC 17.8 H (3.5-10.8) 10^3/ul RBC 4.06 (4.0-5.4) 10^6/ul Hgb 11.6 L (12.0-16.0) g/dl Hct 36 (35-47) % MCV 89 (80-97) fL MCH 29 (27-31) pg MCHC 32 (31-36) g/dl RDW 16 H (10.5-15) % Plt Count 218 (150-450) 10^3/ul MPV 9 (7.4-10.4) um3 Neut % (Auto) 80.0 (38-83) % Lymph % (Auto) 12.1 L (25-47) % [place] % (Auto) 7.4 (1-9) % Eos % (Auto) 0.1 (0-6) % Baso % (Auto) 0.4 (0-2) % Absolute Neuts (auto) 14.2 H (1.5-7.7) 10^3/ul Absolute Lymphs (auto) 2.2 (1.0-4.8) 10^3/ul Absolute Monos (auto) 1.3 H (0-0.8) 10^3/ul Absolute Eos (auto) 0 (0-0.6) 10^3/ul Absolute Basos (auto) 0.1 (0-0.2) 10^3/ul Absolute Nucleated RBC 0 10^3/ul Nucleated RBC % 0 INR (Anticoag Therapy) 2.65 H (0.89-1.11) APTT 30.3 (26.0-36.3) seconds Sodium 133 (133-145) mmol/L Potassium 4.8 (3.5-5.0) mmol/L Chloride 99 L (101-111) mmol/L Carbon Dioxide 25 (22-32) mmol/L Anion Gap 9 (2-11) mmol/L BUN 32 H (6-24) mg/dL Creatinine 1.33 H (0.51-0.95) mg/dL Est GFR ( Amer) 48.6 (>60) Est GFR (Non-Af Amer) 37.8 (>60) BUN/Creatinine Ratio 24.1 H (8-20) Glucose 138 H (70-100) mg/dL Lactic Acid (0.5-2.0) mmol/L Calcium 9.1 (8.6-10.3) mg/dL Magnesium 1.9 (1.9-2.7) mg/dL Total Bilirubin 0.60 (0.2-1.0) mg/dL AST 24 (13-39) U/L ALT 16 (7-52) U/L Alkaline Phosphatase 48 (34-104) U/L Total Creatine Kinase 354 H (10-223) U/L CK-MB (CK-2) 13.5 H (0.6-6.3) ng/mL Troponin I 0.04 H* (<0.04) ng/mL C-Reactive Protein < 1.00 (< 5.00) mg/L Total Protein 6.9 (6.4-8.9) g/dL Albumin 3.8 (3.2-5.2) g/dL Globulin 3.1 (2-4) g/dL Albumin/Globulin Ratio 1.2 (1-3) Lipase 28 (11.0-82.0) U/L TSH 0.22 L (0.34-5.60) mcIU/mL 11/29/16 Range/Units 00:50 WBC (3.5-10.8) 10^3/ul RBC (4.0-5.4) 10^6/ul Hgb (12.0-16.0) g/dl Hct (35-47) % MCV (80-97) fL MCH (27-31) pg MCHC (31-36) g/dl RDW (10.5-15) % Plt Count (150-450) 10^3/ul MPV (7.4-10.4) um3 Neut % (Auto) (38-83) % Lymph % (Auto) (25-47) % [place] % (Auto) (1-9) % Eos % (Auto) (0-6) % Baso % (Auto) (0-2) % Absolute Neuts (auto) (1.5-7.7) 10^3/ul Absolute Lymphs (auto) (1.0-4.8) 10^3/ul Absolute Monos (auto) (0-0.8) 10^3/ul Absolute Eos (auto) (0-0.6) 10^3/ul Absolute Basos (auto) (0-0.2) 10^3/ul Absolute Nucleated RBC 10^3/ul Nucleated RBC % INR (Anticoag Therapy) (0.89-1.11) APTT (26.0-36.3) seconds Sodium (133-145) mmol/L Potassium (3.5-5.0) mmol/L Chloride (101-111) mmol/L Carbon Dioxide (22-32) mmol/L Anion Gap (2-11) mmol/L BUN (6-24) mg/dL Creatinine (0.51-0.95) mg/dL Est GFR ( Amer) (>60) Est GFR (Non-Af Amer) (>60) BUN/Creatinine Ratio (8-20) Glucose (70-100) mg/dL Lactic Acid 2.7 H* (0.5-2.0) mmol/L Calcium (8.6-10.3) mg/dL Magnesium (1.9-2.7) mg/dL Total Bilirubin (0.2-1.0) mg/dL AST (13-39) U/L ALT (7-52) U/L Alkaline Phosphatase (34-104) U/L Total Creatine Kinase (10-223) U/L CK-MB (CK-2) (0.6-6.3) ng/mL Troponin I (<0.04) ng/mL C-Reactive Protein (< 5.00) mg/L Total Protein (6.4-8.9) g/dL Albumin (3.2-5.2) g/dL Globulin (2-4) g/dL Albumin/Globulin Ratio (1-3) Lipase (11.0-82.0) U/L TSH (0.34-5.60) mcIU/mL Assess/Plan/Problems-Billing Assessment: Ms. Pompa is an 86 yo female with a PMH of paroxysmal afib, dual chamber pacemaker placement, cardiomyopathy EF 45%, systolic and diastolic heart failure , BALJIT, hypothyroidism, HTN, HLD, bullous pemphigoid, and colon cancer who was admitted 11/29/16 for right hip fracture sustained during mechanical fall. - Patient Problems (1) Closed right hip fracture Comment: Management per ortho. PWB on r leg x 6 weeks Transfused 2 units PRBC for acute blood loss anemia on 12/02 STR placement in progress (2) Acute blood loss as cause of postoperative anemia Comment: S/p 2 units for H/H of 7.2/, now 10.2 (most recent value on 12/04/16) (3) Paroxysmal atrial fibrillation Comment: currently in a regular rythm Continue Tikosyn Warfarin with lovenox bridge (4) Cardiomyopathy Comment: Most recently documented EF is 45% (5) Systolic and diastolic CHF, chronic Comment: Chronic intermittent, does not appear to be in acute exacerbation Continue torsemide, spironolactone (6) BALJIT (obstructive sleep apnea) Comment: Does not tolerate CPAP (7) HTN (hypertension) Comment: Controlled. Continue home medications. (8) Hypothyroidism Comment: Continue levothyroxine (9) Dyslipidemia Comment: Continue statin. (10) Troponin I above reference range Comment: max at 0.07 suspect demand ischemia, pt asymptomatic (11) DVT prophylaxis Comment: Warfarin with lovenox bridge Status and Disposition: Inpatient admission. medically ready for discharge
[2016-12-06] MEDS: Warfarin TAB(*) 5 MG PO SCH (18:03)
[2016-12-06] MEDS: BIMATOPROST 0.01% LEFT EYE SCH (22:18)
[2016-12-07] MEDS: Acetaminophen TAB* 325 MG PO PRN (05:09)
[2016-12-07] MEDS: Levothyroxine TAB* 125 MCG TAB PO SCH (05:12)
[2016-12-07 08:03] VITALS: BP 152/73
[2016-12-07] MEDS: Polyethylene Glycol 3350* 17 GM PACKET PO SCH (08:18)
[2016-12-07] MEDS: Atorvastatin* 20 MG TAB PO SCH (08:57)
[2016-12-07] MEDS: Docusate CAP* 100 MG PO SCH (08:57)
[2016-12-07] MEDS: Dofetilide CAP* 250 MCG PO SCH (08:57)
[2016-12-07] MEDS: Enoxaparin(*) 100 MG/ML SYR SUBCUT SCH (08:57)
[2016-12-07] MEDS: OPTH LEFT EYE SCH (08:59)
[2016-12-07] MEDS: DORZOLAMIDE 2% LEFT EYE SCH (08:59)
[2016-12-07] MEDS: COMBIGAN LEFT EYE SCH (09:00)
--- NOTE | 2016-12-07 09:25 | DS ---
DISCHARGE SUMMARY: DATE OF ADMISSION: 11/29/16 DATE OF PLANNED DISCHARGE: 12/07/16 DATE OF DICTATION: 12/06/16 PRIMARY CARE PROVIDER: Dr. Guy. ORTHOPEDIC SURGEON: Dr. Patton. DISCHARGE DIAGNOSES: 1. Status post mechanical fall and sustained right hip fracture. 2. Status post right open reduction and internal fixation performed by Dr. Patton on 12/01/16. SECONDARY DIAGNOSES: 1. History of chronic dyspnea and obstructive sleep apnea. The patient does not tolerate CPAP. 2. History of paroxysmal atrial fibrillation status post ablation in 2009. 3. History of sick sinus syndrome status post ICD placement as well as pacemaker. 4. History of decreased ejection fraction of 45% in the past. 5. History of chronic systolic congestive heart failure. 6. History of bullous pemphigoid. 7. Hypothyroidism. 8. Hypertension. 9. Dyslipidemia. 10. History of colon cancer. 11. History of tricuspid insufficiency. 12. History of mitral insufficiency. 13. History of morbid obesity. 14. Cardiac catheterization in January 2015 shows EF of 40% with normal coronary arteries. CONSULTATIONS DURING THE HOSPITAL STAY: Included: 1. Dr. Patton from Orthopedic Surgery. 2. Dr. Corley from Cardiology. PROCEDURES DURING THE HOSPITAL STAY: Included open reduction and internal fixation of the right subtrochanteric hip fracture, performed by Dr. Patton on 12/01/16. LABORATORY DATA AND DIAGNOSTIC STUDIES PERFORMED DURING THE HOSPITAL STAY: Included: 1. On 12/02/16, sodium 132, potassium 4.1, chloride 98, carbon dioxide 58, BUN 19, creatinine 0.95. 2. Troponin peaked at 0.07. 3. CBC was obtained on 11/30/16 and showed white blood cell count of 10.5, hemoglobin of 9.4, hematocrit of 29, and platelets of 146. The patient's hemoglobin and hematocrit postoperatively went down to 7.2 and 22 respectively, and after 2 units of packed red blood cell transfusion on 12/04/16, hemoglobin was up to 10.2. 4. Most recent portable chest x-ray obtained on 12/05/16, impression "prominence of the central pulmonary vasculature." HOSPITAL COURSE: Ms. Martha Pompa is an 86-year-old female with history of paroxysmal atrial fibrillation and chronic dyspnea, for which she is being evaluated by Dr. Corley. The patient slipped and fell and suffered from right intertrochanteric hip fracture. Due to being on Coumadin with an INR of 2.65 at admission, that was reversed with vitamin K and the patient eventually went to the OR on 12/01/16 and currently status post ORIF of the right hip after surgery by Dr. Patton. Postoperatively, the patient had postoperative anemia and required 2 units of packed red blood cells transfusion. Currently, that is stable. Postoperatively, she also was bridged with Lovenox and currently is still on Lovenox until her INR is above 2. At discharge, the patient's INR was 1.83. Postoperatively, the patient's course was uneventful. Apart from that, the patient was slow to be mobilized. She is to be partial weightbearing on the right leg for [address] Patton's recommendation. Dr. Patton also recommended to see the patient in the office for followup in 10 to 14 days. Please note that the patient has chronic dyspnea and that had been unchanged throughout her hospital stay. The patient's medications included Tikosyn and her diuretics were unchanged throughout her stay. DISCHARGE RECOMMENDATIONS: 1. The patient to see the short-term rehabilitation physician within the next few days. 2. The next INR to be obtained on 12/08/16 and to follow up, Lovenox to be stopped once INR is above 2. 3. Follow up with Dr. Patton in 10 to 14 days as an outpatient. 4. Partial weightbearing on the right leg for the next 6 weeks and continue physical therapy. Otherwise, no restrictions. DIET: Cardiac. For physical exam at the time of this dictation, please see daily progress notes. Please note that the patient is being transferred to short-term rehabilitation facility with the discharge planned on 12/07/16 in the morning and this discharge summary is dictated on the evening prior to. Please note this is a short summary of the patient's hospital stay. Please refer to further medical record for details. TIME SPENT: Approximately 45 minutes were spent on the patient's discharge. CC: Dr. Guy; Dr. Patton; Dr. Corley* [id number]/CPS #: [id number] MTDD
[2016-12-07] MEDS: oxyCODONE/Acetamin 5/325 MG* TAB PO PRN (09:45)
== END 2016-12-07 11:35 | DRG 481 ==
LOC: ED 00:21 → SSU 04:33
PROVIDERS: ADMIT Internal Medicine; ATTEND Internal Medicine
PROC: 30233N1 Transfusion of Nonautologous Red Blood Cells into Peripheral Vein, Percutaneous Approach (ICD-10-PCS; principal; 2016-11-29)
PROC: 0QS606Z Reposition Right Upper Femur with Intramedullary Internal Fixation Device, Open Approach (ICD-10-PCS; 2016-11-29)
DX: S72.21XA Displaced subtrochanteric fracture of right femur, initial encounter for closed fracture (principal); I42.9 Cardiomyopathy, unspecified; I11.0 Hypertensive heart disease with heart failure; I50.42 Chronic combined systolic (congestive) and diastolic (congestive) heart failure; E66.01 Morbid (severe) obesity due to excess calories; Z68.37 Body mass index [BMI] 37.0-37.9, adult; D62 Acute posthemorrhagic anemia; Z88.5 Allergy status to narcotic agent; Z88.8 Allergy status to other drugs, medicaments and biological substances; J45.909 Unspecified asthma, uncomplicated; M19.90 Unspecified osteoarthritis, unspecified site; Z85.038 Personal history of other malignant neoplasm of large intestine; H26.9 Unspecified cataract; Z96.612 Presence of left artificial shoulder joint; Z96.611 Presence of right artificial shoulder joint; I48.0 Paroxysmal atrial fibrillation; Z95.0 Presence of cardiac pacemaker; G47.33 Obstructive sleep apnea (adult) (pediatric); E03.9 Hypothyroidism, unspecified; Z91.041 Radiographic dye allergy status; Z82.49 Family history of ischemic heart disease and other diseases of the circulatory system; Z80.0 Family history of malignant neoplasm of digestive organs; W00.0XXA Fall on same level due to ice and snow, initial encounter; Y92.89 Other specified places as the place of occurrence of the external cause; E78.5 Hyperlipidemia, unspecified
CPT/HCPCS: 36415; 71010; 80048; 80053; 81003; 81015; 82550; 82553; 83605; 83690; 83735; 84443; 84484; 85014; 85018; 85025; 85610; 85730; 86140; 86850; 86900; 86901; 86922; 87086; 93005; 97530; 99285; A9270-GY; C1713; C1776; J0690; J1100; J1650; J1940; J2250; J2270; J2405; J3010; P9040

== ENCOUNTER 2017-01-28 08:36 | Emergency (ER) | payer MEDICARE, BC ==
[2017-01-28] MEDS ORDERED: HYDROmorphone INJ* 1 MG/ML CARPUJECT SYRINGE IV ONE (09:33)
[2017-01-28] MEDS ORDERED: Ondansetron INJ* 2 MG/ML VIAL IV ONE (09:33)
[2017-01-28] MEDS ORDERED: Dofetilide CAP* 250 MCG PO ONE (09:49)
[2017-01-28] MEDS ORDERED: Ramipril CAP* 10 MG PO ONE (09:49)
[2017-01-28] MEDS ORDERED: Levothyroxine TAB* 100 MCG TAB PO SCH (10:00)
[2017-01-28] MEDS ORDERED: Spironolactone TAB* 25 MG PO SCH (10:00)
[2017-01-28] MEDS ORDERED: Levothyroxine TAB* 75 MCG TAB PO SCH (10:00)
[2017-01-28] MEDS ORDERED: Levothyroxine TAB* 25 MCG TAB PO ONE (10:31)
[2017-01-28 10:37] LABS: Hematocrit 31 % (35-47); Hemoglobin 9.7 g/dl (12.0-16.0); Mean Corpuscular HGB Conc 31 g/dl (31-36); Mean Corpuscular Hemoglobin 26 pg (27-31); Mean Corpuscular Volume 84 fL (80-97); Mean Platelet Volume 8 um3 (7.4-10.4); Red Blood Count 3.67 10^6/ul (4.0-5.4); Red Cell Distribution Width 19 % (10.5-15); White Blood Count 12.7 10^3/ul (3.5-10.8)
--- NOTE | 2017-01-28 10:38 | RAD ---
INDICATION: Right femoral trauma COMPARISON: January 20, 2017 TECHNIQUE: AP and lateral views were obtained. FINDINGS: There is an acute distal femoral diaphyseal fracture with posterior displacement of distal fracture fragment one third bone width. The fracture is at the level of the caudal extent of the femoral lennie. The femoral lennie appears unchanged and crosses the proximal femoral fracture which is unchanged. There is soft tissue swelling with a joint effusion at the knee IMPRESSION: ACUTE DISTAL FEMORAL FRACTURE AT THE CAUDAL EXTENT OF THE FEMORAL RODDING NEW SINCE JANUARY 20, 2017. NO CHANGE IN THE PROXIMAL FEMORAL FRACTURE.
[2017-01-28] MEDS: Levothyroxine TAB* 125 MCG TAB PO ONE (10:40)
[2017-01-28 11:03] LABS: Albumin 3.2 g/dL (3.2-5.2); BUN/Creatinine Ratio 33.3 (8-20); C Reactive Protein 20.81 mg/L (< 5.00); Calcium 8.8 mg/dL (8.6-10.3); EGFR African American 90.1 (>60); Globulin 3.1 g/dL (2-4); Total Bilirubin 0.6 mg/dL (0.2-1.0); Total Protein 6.3 g/dL (6.4-8.9)
--- NOTE | 2017-01-28 12:56 | ED ---
Mary, DoctoreCcy, scribed for Ramon Mcmahon MD on 01/28/17 at 0904 . Lower Extremity - HPI Summary HPI Summary: 86 year old female brought in to [facility] by EMS c/o right knee pain and swelling. Patient previously fractured the right femur on 11/28/2016, and was treated at [facility]. Her pain began this morning after falling out of bed. She reports swelling in the right knee and an inability to bear weight, but denies any pain in her right hip. Additionally, she denies any dizziness. Pain medication administered by EMS did not noticeably help. - History of Current Complaint Chief Complaint: EDExtremityLower Stated Complaint: FALL / RT KNEE PAIN Time Seen by Provider: 01/28/17 08:42 Hx Obtained From: Patient, EMS Mechanism Of Injury: Fall From Height Of: - fell from the bed Onset of Pain: Immediate Onset/Duration: Hours Severity Initially: Moderate Severity Currently: Moderate Pain Intensity: 6 Pain Scale Used: 0-10 Numeric Timing: Constant Associated Signs And Symptoms: Positive: Swelling, Knee Pain. Negative: Dizziness Aggravating Factor(s): Weight Bearing - unable to bear weight Alleviating Factor(s): Nothing Able to Bear Weight: No - Allergies/Home Medications Allergies/Adverse Reactions: Allergies Allergy/AdvReac Type Severity Reaction Status Date / Time Adhesive Tape [Paper Tape] Allergy Blisters Verified 11/29/16 02:37 Amiodarone Allergy Unknown Verified 11/29/16 02:37 Reaction Details Codeine Allergy Unknown Verified 11/29/16 02:37 Reaction Details Home Medications: Home Medications Bimatoprost 0.01% OPHTH (NF) [Lumigan 0.01% OPHTH (NF)] 1 drop BOTH EYES QPM 02/11 [History Confirmed 01/28/17] Brimonid/Timolol 0.2/0.5%(NF) [Combigan 0.2/0.5% (NF)] 1 drop BOTH EYES BEDTIME 01/28/17 [History Confirmed 01/28/17] Dofetilide CAP* [Tikosyn CAP*] 250 mcg PO BID 01/28/17 [History Confirmed ] Dorzolamide 2% OPTH (NF) [Trusopt 2% OPTH (NF)] 1 drop BOTH EYES BEDTIME [History Confirmed 01/28/17] Levothyroxine TAB (NF) [Synthroid TAB (NF)] 125 mcg PO DAILY 01/28/17 [History Confirmed 01/28/17] Nebivolol TAB (NF) [Bystolic TAB (NF)] 5 mg PO DAILY 01/28/17 [History Confirmed 01/28/17] Ramipril CAP* [Altace CAP*] 10 mg PO DAILY 01/28/17 [History Confirmed 01/28/17] Spironolactone TAB* [Aldactone TAB*] 25 mg PO DAILY 01/28/17 [History Confirmed 01/28/17] Torsemide TAB* [Demadex*] 20 mg PO SEE INSTRUCTIONS 01/28/17 [History Confirmed 01/28/17] Warfarin TAB(*) [Coumadin TAB(*)] 2.5 mg PO SEE INSTRUCTIONS 01/28/17 [History Confirmed 01/28/17] Warfarin TAB(*) [Coumadin TAB(*)] 5 mg PO SEE INSTRUCTIONS 01/28/17 [History Confirmed 01/28/17] PMH/Surg Hx/FS Hx/Imm Hx Endocrine/Hematology History: Reports: Hx Thyroid Disease Denies: Hx Diabetes Cardiovascular History: Reports: Hx Congestive Heart Failure, Hx Hypercholesterolemia, Hx Hypertension, Hx Pacemaker/ICD - 2004, Other Cardiovascular Problems/Disorders - Bradycardia Respiratory History: Reports: Hx Asthma - NEW ONSET VERY SOB WORSENING 12/2014, Hx Chronic Obstructive Pulmonary Disease (COPD) GI History: Denies: Hx Gastroesophageal Reflux Disease, Hx Ulcer Musculoskeletal History: Reports: Hx Arthritis Sensory History: Reports: Hx Cataracts, Hx Contacts or Glasses, Hx Glaucoma - Left eye, Hx Hearing Problem Opthamlomology History: Reports: Hx Cataracts, Hx Contacts or Glasses, Hx Glaucoma - Left eye - Cancer History Cancer Type, Location and Year: colon ca 2010 - Surgical History Surgery Procedure, Year, and Place: Bilateral total shoulder replacements, Colon Resection 2009, pacer/ICD - Immunization History Date of Tetanus Vaccine: pt states she doesnt know Date of Influenza Vaccine: jul 2012 Infectious Disease History: No Infectious Disease History: Denies: Hx Clostridium Difficile, Hx Hepatitis, Hx Human Immunodeficiency Virus (HIV), Hx of Known/Suspected MRSA, Hx Shingles, Hx Tuberculosis, Traveled Outside the [place] in Last 30 Days - Family History Known Family History: Positive: Other - Stomach CA - Social History Alcohol Use: None Substance Use Type: Reports: None Smoking Status (MU): Never Smoked Tobacco Review of Systems Negative: Abdominal Pain Musculoskeletal: Other - pain in right knee and right lower leg Positive: Edema - right knee Neurological: Other - no dizziness All Other Systems Reviewed And Are Negative: Yes Physical Exam Triage Information Reviewed: Yes Vital Signs On Initial Exam: Initial Vitals Temp Pulse Resp BP Pulse Ox 98.4 F 80 22 151/64 100 01/28/17 08:38 01/28/17 08:38 01/28/17 08:38 01/28/17 08:38 01/28/17 08:38 Vital Signs Reviewed: Yes Appearance: Positive: Well-Appearing, No Pain Distress Skin: Positive: Warm, Skin Color Reflects Adequate Perfusion, Dry, Tender - Right knee TTP; right hip non tender. Edema in the right knee., Other - right leg appears shortened relative to left leg Head/Face: Positive: Normal Head/Face Inspection Eyes: Positive: Normal ENT: Positive: Normal ENT inspection Neck: Positive: Supple, Nontender Respiratory/Lung Sounds: Positive: Clear to Auscultation, Breath Sounds Present Cardiovascular: Positive: RRR Abdomen Description: Positive: Nontender, Soft Bowel Sounds: Positive: Present Musculoskeletal: Positive: Normal Neurological: Positive: Normal Psychiatric: Positive: Normal, Affect/Mood Appropriate - [place] Coma Scale Coma Scale Total: 15 Diagnostics - Vital Signs Vital Signs Temp Pulse Resp BP Pulse Ox 01/28/17 08:42 80 100 01/28/17 08:38 98.4 F 80 22 151/64 100 - Laboratory Lab Results: Lab Results 01/28/17 01/28/17 Range/Units 10:27 10:27 WBC 12.7 H (3.5-10.8) 10^3/ul RBC 3.67 L (4.0-5.4) 10^6/ul Hgb 9.7 L (12.0-16.0) g/dl Hct 31 L (35-47) % MCV 84 (80-97) fL MCH 26 L (27-31) pg MCHC 31 (31-36) g/dl RDW 19 H (10.5-15) % Plt Count 307 (150-450) 10^3/ul MPV 8 (7.4-10.4) um3 Neut % (Auto) 75.9 (38-83) % Lymph % (Auto) 12.1 L (25-47) % Barnes % (Auto) 11.6 H (1-9) % Eos % (Auto) 0.2 (0-6) % Baso % (Auto) 0.2 (0-2) % Absolute Neuts (auto) 9.7 H (1.5-7.7) 10^3/ul Absolute Lymphs (auto) 1.5 (1.0-4.8) 10^3/ul Absolute Monos (auto) 1.5 H (0-0.8) 10^3/ul Absolute Eos (auto) 0 (0-0.6) 10^3/ul Absolute Basos (auto) 0 (0-0.2) 10^3/ul Absolute Nucleated RBC 0 10^3/ul Nucleated RBC % 0 Sodium 132 L (133-145) mmol/L Potassium 4.0 (3.5-5.0) mmol/L Chloride 97 L (101-111) mmol/L Carbon Dioxide 28 (22-32) mmol/L Anion Gap 7 (2-11) mmol/L BUN 26 H (6-24) mg/dL Creatinine 0.78 (0.51-0.95) mg/dL Est GFR ( Amer) 90.1 (>60) Est GFR (Non-Af Amer) 70.0 (>60) BUN/Creatinine Ratio 33.3 H (8-20) Glucose 115 H (70-100) mg/dL Calcium 8.8 (8.6-10.3) mg/dL Total Bilirubin 0.60 (0.2-1.0) mg/dL AST 16 (13-39) U/L ALT 10 (7-52) U/L Alkaline Phosphatase 104 (34-104) U/L C-Reactive Protein 20.81 H (< 5.00) mg/L Total Protein 6.3 L (6.4-8.9) g/dL Albumin 3.2 (3.2-5.2) g/dL Globulin 3.1 (2-4) g/dL Albumin/Globulin Ratio 1.0 (1-3) Result Diagrams: 01/28/17 10:27 01/28/17 10:27 Lab Statement: Any lab studies that have been ordered have been reviewed, and results considered in the medical decision making process. Lower Extremity Course/Dx - Course Course Of Treatment: I spoke with Dr. Gallego who reviewed the films. None of our orthopedists are equipped to deal with this complication and she recommended transfer. - Diagnoses Provider Diagnoses: Femur fracture, right - Physician Notifications Discussed Care of Patient With: Dr. Gallego - Ortho, Dr. Bo - ED in [facility] Discharge - Discharge Plan Condition: Stable Disposition: TRANS HIGHER LVL OF CARE FAC Patient Education Materials: Leg Fracture (ED) The documentation as recorded by the Doctor villagran Tahera accurately reflects the service I personally performed and the decisions made by me, Ramon Mcmahon MD.
[2017-01-28 13:13] VITALS: BP 119/64
== END 2017-01-28 13:36 | disposition short-term general hospital (02) ==
LOC: ED 08:36
DX: S72.401D Unspecified fracture of lower end of right femur, subsequent encounter for closed fracture with routine healing (principal); M25.561 Pain in right knee; W19.XXXD Unspecified fall, subsequent encounter
CPT/HCPCS: 36415; 80053; 85025; 86140; 96374; 96375; 99283; A9270-GY; J1170; J2405

== ENCOUNTER 2017-05-29 11:26 | Emergency (ER) | payer MEDICARE, BC ==
--- NOTE | 2017-05-29 13:42 | RAD ---
INDICATION: Right femoral rodding. Periprosthetic fracture. COMPARISON: Right femur January 28, 2017 TECHNIQUE: An AP view of the pelvis and AP views of the hip in neutral and abducted position were obtained FINDINGS: There is right femoral rodding. There is some increased calcification about the proximal femoral fracture. The femoral nail, however, is eccentrically placed within the femoral head suggesting hardware failure. The distal periprosthetic fracture is not completely evaluated on this exam but several of the lateral images suggest significant displacement and perhaps partial interval osteolysis. IMPRESSION: Right femoral rodding. Suspect hardware failure about the femoral nail and increased displacement about the distal periprosthetic fracture.
--- NOTE | 2017-05-29 15:08 | ED ---
Lower Extremity - HPI Summary HPI Summary: 86F w/ extensive PMH of CHF, HTN, and COPD presents with right hip pain for two days. She states she has had PT two days ago and was going an exercise where she lifted her legs with an exercise ball in between and lifted her legs. She immediately felt pain in her right hip. She feels like it is a pulling sensation. She states the pain is worst with ambulation. She has previous subtrochanteric hip fracture on 11/29 which surgery at [facility] by Dr Patton where plate and screw was placed. She was sent to rehab and then discharge from rehab. On January 28 she fell again and had a distal femur fracture that was transferred to [facility] for management. She denies any surgery while at [facility]. She was being followed by someone at [facility] for this injury. She was sent to rehab and discharge two weeks ago with at home PT. She denies any injury recently. She has been in pain but pain got worst two days ago after PT. She denies any numbness or tingling. She has been taking ibuprofen for her pain. She denies any loss of bowel or bladder or saddle anesthesia. - History of Current Complaint Chief Complaint: EDExtremityLower Stated Complaint: RT LEG PAIN Time Seen by Provider: 05/29/17 11:34 Pain Intensity: 0 - Allergies/Home Medications Allergies/Adverse Reactions: Allergies Allergy/AdvReac Type Severity Reaction Status Date / Time Adhesive Tape [Paper Tape] Allergy Blisters Verified 05/29/17 16:49 Amiodarone Allergy Unknown Verified 05/29/17 16:49 Reaction Details Codeine Allergy Unknown Verified 05/29/17 16:49 Reaction Details PMH/Surg Hx/FS Hx/Imm Hx Endocrine/Hematology History: Reports: Hx Thyroid Disease Denies: Hx Diabetes Cardiovascular History: Reports: Hx Congestive Heart Failure, Hx Hypercholesterolemia, Hx Hypertension, Hx Pacemaker/ICD - 2004, Other Cardiovascular Problems/Disorders - Bradycardia Respiratory History: Reports: Hx Asthma - NEW ONSET VERY SOB WORSENING 12/2014, Hx Chronic Obstructive Pulmonary Disease (COPD) GI History: Denies: Hx Gastroesophageal Reflux Disease, Hx Ulcer Musculoskeletal History: Reports: Hx Arthritis Sensory History: Reports: Hx Cataracts, Hx Contacts or Glasses, Hx Glaucoma - Left eye, Hx Hearing Problem Opthamlomology History: Reports: Hx Cataracts, Hx Contacts or Glasses, Hx Glaucoma - Left eye - Cancer History Cancer Type, Location and Year: colon ca 2010 - Surgical History Surgery Procedure, Year, and Place: Bilateral total shoulder replacements, Colon Resection 2009, pacer/ICD, RT FEMUR RODDING - Immunization History Date of Tetanus Vaccine: pt states she doesnt know Date of Influenza Vaccine: jul 2012 Infectious Disease History: No Infectious Disease History: Denies: Hx Clostridium Difficile, Hx Hepatitis, Hx Human Immunodeficiency Virus (HIV), Hx of Known/Suspected MRSA, Hx Shingles, Hx Tuberculosis, Traveled Outside the [place] in Last 30 Days - Family History Known Family History: Positive: Other - Stomach CA - Social History Alcohol Use: None Substance Use Type: Reports: None Smoking Status (MU): Never Smoked Tobacco Review of Systems Negative: Fever Negative: Chest Pain Negative: Shortness Of Breath Positive: Myalgia - right hip pain All Other Systems Reviewed And Are Negative: Yes Physical Exam Triage Information Reviewed: Yes Vital Signs On Initial Exam: Initial Vitals Temp Pulse Resp BP Pulse Ox 98.7 F 70 16 117/68 98 05/29/17 11:29 05/29/17 11:29 05/29/17 11:29 05/29/17 11:29 05/29/17 11:29 Vital Signs Reviewed: Yes Appearance: Positive: Well-Appearing Skin: Positive: Warm, Dry Head/Face: Positive: Normal Head/Face Inspection Eyes: Positive: Normal, Conjunctiva Clear ENT: Positive: Normal ENT inspection, Pharynx normal, TMs normal Respiratory/Lung Sounds: Positive: Clear to Auscultation, Breath Sounds Present Cardiovascular: Positive: Normal, RRR Abdomen Description: Positive: Nontender, Soft Bowel Sounds: Positive: Present Musculoskeletal: Positive: Limited @ - right hip due to pain, Other - good pulses, capillary refill< 2 secs, nontender over knee, full ROM of knee, tender over right hip Diagnostics - Vital Signs Vital Signs Temp Pulse Resp BP Pulse Ox 05/29/17 11:29 98.7 F 70 16 117/68 98 - Laboratory Result Diagrams: 05/29/17 16:50 05/29/17 16:50 Lab Statement: Any lab studies that have been ordered have been reviewed, and results considered in the medical decision making process. - Radiology hip Xray Interpretation: Positive (See Comments) - IMPRESSION: Right femoral rodding. Suspect hardware failure about the femoral nail and increased displacement about the distal periprosthetic fracture. Radiology Interpretation Completed By: Radiologist - CT leg CT Interpretation: Positive (See Comments) - IMPRESSION: Right femoral rodding. The femoral talus position within the femoral head as described. There is a periprosthetic fracture about the caudal extent of the lennie as described on earlier plain radiographs. There is some interval callus formation about both fracture sites. CT Interpretation Completed By: Radiologist Lower Extremity Course/Dx - Course Course Of Treatment: 86F w/ extensive medical history presents with right hip pain for 2 days. had previous fracture of hip requiring surgery with plate and screw placed in Nov at [facility]. fell again in January and broke distal femur. nonoperation was done at [facility] at that time. released from rehab 2 weeks ago and started PT. doing exercise in PT and felt pain in hip. pain is worst with ambulation. xray shows possible hardware failure. discussed with dr Renee from ortho recommends CT to evaluate lower femur. After CT consulted Dr Renee again and says that needs to transfer due to acuity of patient will need trauma surgeon as likely need hip replacement and plate in lower femur and no one at this facility is comfortable with the complexity of the patient. [facility] - Diagnoses Differential Diagnosis/HQI/PQRI: Positive: Fracture (Closed), Sprain, Strain Provider Diagnoses: nonhealing fracture of distal femur - Physician Notifications Discussed Care Of Patient With: Dr Renee Time Discussed With Above Provider: 14:30 - recommends transfer due to complexity of patient Discharge - Discharge Plan Condition: Stable Disposition: TRANS HIGHER LVL OF CARE FAC Referrals: Mariano Guy MD [Primary Care Provider] -
--- NOTE | 2017-05-29 15:13 | RAD ---
INDICATION: Right hip pain COMPARISON: Right hip May 29, 2017 TECHNIQUE: Axial images of the right femur obtained with coronal and sagittal reconstructions. Right hip and right femur same date FINDINGS: There is a femoral lennie and nail. The nail is positioned near the superior cortical margin of the femoral head with lucency and rarefaction surrounding the nail along its inferior margin. There is no cortical breakthrough. There is callus formation about the intratrochanteric fracture. The lennie spans a fracture. The distal aspect of the lennie is at the level the distal femoral metadiaphysis where there is the periprosthetic fracture. There is interval callus formation. The caudal extent of the lennie is positioned along the anterior cortical margin of the distal femur and there is cortical breakthrough consistent with earlier plain radiographic findings. IMPRESSION: Right femoral rodding. The femoral talus position within the femoral head as described. There is a periprosthetic fracture about the caudal extent of the lennie as described on earlier plain radiographs. There is some interval callus formation about both fracture sites.
[2017-05-29] MEDS ORDERED: oxyCODONE/Acetamin 5/325 MG* TAB PO ONE (16:01)
[2017-05-29 17:16] LABS: Hematocrit 34 % (35-47); Hemoglobin 10.8 g/dl (12.0-16.0); Mean Corpuscular HGB Conc 32 g/dl (31-36); Mean Corpuscular Hemoglobin 27 pg (27-31); Mean Corpuscular Volume 85 fL (80-97); Mean Platelet Volume 8 um3 (7.4-10.4); Red Blood Count 3.94 10^6/ul (4.0-5.4); Red Cell Distribution Width 20 % (10.5-15); White Blood Count 11.6 10^3/ul (3.5-10.8)
[2017-05-29 17:20] LABS: Albumin 3.5 g/dL (3.2-5.2); Calcium 9.2 mg/dL (8.6-10.3); EGFR African American 82.7 (>60); EGFR Non-African American 64.3 (>60); Globulin 3.6 g/dL (2-4); Potassium 4.4 mmol/L (3.5-5.0); Total Bilirubin 0.8 mg/dL (0.2-1.0); Total Protein 7.1 g/dL (6.4-8.9)
[2017-05-29 18:15] VITALS: BP 129/62
== END 2017-05-29 18:10 | disposition short-term general hospital (02) ==
LOC: ED 11:26
DX: S72.91XG Unspecified fracture of right femur, subsequent encounter for closed fracture with delayed healing (principal); I50.9 Heart failure, unspecified; I10 Essential (primary) hypertension; J44.9 Chronic obstructive pulmonary disease, unspecified; J45.909 Unspecified asthma, uncomplicated; Z88.5 Allergy status to narcotic agent; E78.00 Pure hypercholesterolemia, unspecified; K21.9 Gastro-esophageal reflux disease without esophagitis
CPT/HCPCS: 36415; 80053; 85025; 99284; A9270-GY